=== PATIENT | male | born 1940 | race Caucasian/White ===

== ENCOUNTER 2016-08-09 08:43 | Inpatient (IN) | payer MEDICARE, OTHER ==
--- NOTE | 2016-08-08 11:10 | NUR ---
NN PT STATES HE DOESN'T HAVE A WAY HOME AND IS PLANNING ON DRIVING HIMSELF TO AND FROM THE HOSPITAL. I DISCUSSED WITH PT THAT OUR POLICY IS FOR THE PT TO NOT DRIVE THEMSELVES HOME AFTER PROCEDURE BUT THAT I WOULD DO SOME CHECKING. I SPOKE WITH CASE MANAGEMENT WELL FARNAZ IN RISK MANAGEMENT TO COME UP WITH A PLAN FOR THIS PT. THEY ARE WORKING ON POSSIBILITY OF EXTENDED CAB SERVICE THE PT STATED HE WAS TOLD BY DR. MAC THAT HE WOULDN'T BE DISCHARGED UNTIL AFTER HOURS ON MON. PT IS CONCERNED THAT CAB SERVICE ONLY RUNS UNTIL 4:30. I CONTA[address] MAC'S OFFICE TO SEE IF THERE WAS ANY CHANCE THAT DISCHARGE COULD HAPPEN PRIOR TO THE 4:30 CUT OFF TIME. WAITING ON A RETURN CALL FROM DR. MAC'S OFFICE AFTER HIS NURSE HAS A CHANCE TO DISCUSS THE SITUATION WITH HIM.
--- NOTE | 2016-08-08 15:00 | NUR ---
NN DR. MAC'S OFFICE HAS NOT YET RETURNED PHONE CALL IN REGARDS TO PT CHECK OUT. SPOKE WITH FARNAZ AND THE DECISION WAS MADE TO CALL PT AND NOTIFY HIM THAT HE SHOULD PROCEED WITH BRINGING A CAB TO THE HOSPITAL FOR HIS PROCEDURE AND THAT THE HOSPITAL WOULD HAVE ARRANGEMENTS MADE FOR HIS RIDE UPON DISCHARGE. PT WAS NOTIFIED, HE WAS VERY GRATEFUL FOR ALL THE HARD WORK FROM THE HOSPITAL TO MAKE THIS HAPPEN FOR HIM.
[2016-08-09] VITALS (30 sets, daily range): BP systolic 78–147; BP diastolic 39–82; PULSE 74–102; RESP 14–28; TEMP 96.7–97.8; O2SAT 92–99; Ht 180.3 cm; Wt 108.0 kg
[~2016-08-09] VITALS: Ht 180.3 cm; Wt 108.0 kg
[~2016-08-09 08:43] MED LIST: AMLO5TAB2 PO; ASPI-557 PO; ATOR40TA64 PO; AZIT250T PO; CANA1TAB4 PO; EXEN2VIA SQ; FINA5TAB40 PO; FLUN25SP NAS; IBUP-1547 PO; IOHEXOL 300 MG/ML 50ml INJECTION ONE; LEVOFLOXACIN 500 mg IVPB 500 MG in D5W 100 ML IV ONE; LIDOCAINE 1% (10mg/ml) 2ml SDV INJ ONE; LISI-621 PO; POLY119P3 PO; TIMO5DRO7 BOTH EYES; [UNRECOGNIZED DRUG - CODE] PO; [UNRECOGNIZED DRUG - OTHER] TOP
--- OUTSIDE RECORDS SUMMARY | 2016-08-09 08:49 | XMS REPORT | Summary of Care ---
Author Author Cleve Ramos M.D. Organization Unknown Address [address] [place] [address] GADIEL Avilez [address] Phone Unavailable Care Team Providers Care Mobility Engineer Name Role Phone Cleve Ramos M.D. Unavailable Unavailable Rick Wheat II Unavailable Unavailable Unavailable Unavailable Functional Status Name Dates Details Functional status health issues are not documented Status: Name Dates Details Cognitive status health issues are not documented Status: Problems Name Dates Details Chronic prostatitis (601.1, N41.1) Status: Active Nocturia (788.43, R35.1) Status: Active HTN (hypertension) (401.9, I10) Status: Active Bilateral kidney stones (592.0, N20.0) Status: Active Prophylactic antibiotic (V58.62, Z79.2) Status: Active Microhematuria (599.72, R31.29) Status: Active BPH (benign prostatic hypertrophy) with urinary obstruction (600.01, N40.1) Status: Active Difficulty urinating (788.99, R39.198) Status: Active Medications Name Dates Details Lisinopril 20 MG Oral Tablet TAKE 1 TABLET DAILY. * Start 18-Mar-2016 Active Finasteride 5 MG Oral Tablet TAKE 1 TABLET DAILY. * Refills: 0 * Start 18-Mar-2016 Active MiraLax Oral Packet MIX 1 PACKET IN 8 OUNCES OF LIQUID AND DRINK ONCE DAILY. * Refills: 0 * Start 18-Mar-2016 Active Amlodipine-Atorvastatin 5-20 MG Oral Tablet TAKE 1 TABLET DAILY. * Refills: 0 * Start 18-Mar-2016 Active Amlodipine Besy-Benazepril HCl - 5-40 MG Oral Capsule Take 1 tablet daily * Refills: 0 * Start 18-Mar-2016 Active Aspirin Adult Low Dose 81 MG Oral Tablet Delayed Release TAKE 1 TABLET DAILY. * Refills: 0 * Start 18-Mar-2016 Active Niaspan 1000 MG Oral Tablet Extended Release TAKE 1 TABLET AT BEDTIME. * Refills: 0 * Start 18-Mar-2016 Active Invokamet 150-1000 MG Oral Tablet TAKE 1 TABLET TWICE DAILY. * Refills: 0 * Start 18-Mar-2016 Active Timolol Maleate 0.25 % Ophthalmic Gel Forming Solution ONE DROP RIGHT EYE TWICE DAILY. * Refills: 0 * Start 18-Mar-2016 Active Flunisolide 25 MCG/ACT (0.025%) Nasal Solution USE DIRECTED. * Refills: 0 * Start 18-Mar-2016 Active Metrogel 1 % External Gel USE DIRECTED. * Refills: 0 * Start 18-Mar-2016 Active Bydureon 2 MG Subcutaneous Pen-injector * Refills: 0 * Start 18-Mar-2016 Active Tamsulosin HCl - 0.4 MG Oral Capsule TAKE 1 CAPSULE BY MOUTH AT BEDTIME * Quantity: 90 Refills: 3 Cho M.DChristiano, Cleve * Start 18-Mar-2016 Active Allergies and Adverse Reactions Name Dates Details Decongest II TB12 (Allergy) Status: Active Sulfa Drugs (Allergy) Status: Active Past Medical History Name Dates Details History of Kidney stone on left side (592.0, N20.0) Status: Resolved History of kidney stones (V13.01, Z87.442) Status: Resolved History of Left ureteral calculus (592.1, N20.1) Status: Resolved History of Lesion of bladder (596.9, N32.9) Status: Resolved History of Pyuria (791.9, N39.0) Status: Resolved History of Renal colic on right side (788.0, N23) Status: Resolved History of Retained ureteral stent (V43.89, Z96.0) Status: Resolved History of Right ureteral stone (592.1, N20.1) Status: Resolved History of Ureter, stricture (593.3, N13.5) Status: Resolved History of Urinary urgency (788.63, R39.15) Status: Resolved Procedures Procedure Dates Details History of Surg Prostate Transureth Dest Tissue Microwave Thermotherapy History of Cholecystotomy History of Cystoscopy With Ureteroscopy With Lithotripsy Procedures not documented Immunization Name Dates Details Immunizations not documented Family History Name Dates Details Family history of malignant neoplasm of breast (V16.3, Z80.3) Status: Active Family history of diabetes mellitus (V18.0, Z83.3) Status: Active Family history of epilepsy (V17.2, Z82.0) Status: Active Name Dates Details Family history of cardiac disorder (V17.49, Z82.49) Status: Active Social History Name Dates Details - Status: Name Dates Details Never smoker Vital Signs Date Test Result Details 01-Apr-2016 08:49 BP Systolic 112 mm[Hg] Status: Comments: Location: ; Position: BP Diastolic 60 mm[Hg] Status: Comments: Location: ; Position: Heart Rate 61 /min Status: Comments: Location: ; Weight 240 lb Status: 25-Mar-2016 10:38 BP Systolic 130 mm[Hg] Status: Comments: Location: ; Position: BP Diastolic 66 mm[Hg] Status: Comments: Location: ; Position: Heart Rate 68 /min Status: Comments: Location: ; Physical Findings 16 Status: Comments: Respiration 18-Mar-2016 08:04 BP Systolic 116 mm[Hg] Status: Comments: Location: ; Position: BP Diastolic 63 mm[Hg] Status: Comments: Location: ; Position: Heart Rate 85 /min Status: Comments: Location: ; Weight 240 lb Status: Results Date Description Value Details Results not documented Plan of Care Name Dates Details Planned Observations Planned Goals not documented Instructions Name Dates Details Instructions not documented Encounters Appointment; Cleve Ramos M.D. Encounter Diagnosis: Problem not documented On 25-Mar-2016 10:30 Appointment; Cleve Ramos M.D. Encounter Diagnosis: Problem not documented On 18-Mar-2016 08:00
--- OUTSIDE RECORDS SUMMARY | 2016-08-09 08:49 | XMS REPORT | Summary of Care ---
Author Author Cleve Ramos M.D. Organization Unknown Address [address] [place] [address] GADIEL Avilez [address] Phone Unavailable Care Team Providers Care Security Delivery Specialist Name Role Phone Cleve Ramos M.D. Unavailable Unavailable Rick Wheat II Unavailable Unavailable Unavailable Unavailable Functional Status Name Dates Details Functional status health issues are not documented Status: Name Dates Details Cognitive status health issues are not documented Status: Problems Name Dates Details Nocturia (788.43, R35.1) Status: Active HTN (hypertension) (401.9, I10) Status: Active Bilateral kidney stones (592.0, N20.0) Status: Active Prophylactic antibiotic (V58.62, Z79.2) Status: Active Microhematuria (599.72, R31.29) Status: Active Difficulty urinating (788.99, R39.198) Status: Active Epididymitis (604.90, N45.1) Status: Active BPH (benign prostatic hypertrophy) with urinary obstruction (600.01, N40.1) Status: Active Chronic prostatitis (601.1, N41.1) Status: Active Medications Name Dates Details Lisinopril [...] BEDTIME * Quantity: 90 Refills: 3 Cho Tammy.Cleve Reyna * Start 18-Mar-2016 Active Doxycycline Hyclate 100 MG Oral Capsule TAKE 1 CAPSULE TWICE DAILY UNTIL GONE. * Quantity: 60 Refills: 0 Cho M.Cleve Reyna * Start 22-Apr-2016 Active Allergies and Adverse Reactions Name Dates [...] smoker Vital Signs Date Test Result Details 22-Apr-2016 08:48 BP Systolic 124 mm[Hg] Status: Comments: Location: ; Position: BP Diastolic 73 mm[Hg] Status: Comments: Location: ; Position: Heart Rate 98 /min Status: Comments: Location: ; Physical Findings 16 Status: Comments: Respiration 01-Apr-2016 08:49 BP Systolic 112 mm[Hg] Status: [...] ; Physical Findings 16 Status: Comments: Respiration Results Date Description Value Details Results not documented Plan of Care Name Dates Details Planned Observations Planned Goals not documented Planned Encounters Appointment; Provider: Cleve Ramos M.D. On 06-May-2016 08:00 Interventions Provided Medication Changes* Doxycycline Hyclate 100 MG Oral Capsule - Start Instructions Name Dates Details Instructions not documented Encounters Appointment; Cleve Ramos M.D. Encounter Diagnosis: Problem not documented On 01-Apr-2016 08:45 Appointment; Cleve Ramos M.D. Encounter Diagnosis: Problem not documented On 25-Mar-2016 10:30 Appointment; Cleve Ramos M.D. Encounter Diagnosis: Problem not documented On 18-Mar-2016 08:00
--- OUTSIDE RECORDS SUMMARY | 2016-08-09 08:49 | XMS REPORT | Continuity of Care Document ---
Author Author [facility] Organization [facility] Address Unknown Phone Unavailable Support Name Relationship Address Phone LISSETTE PAULINO MD Caregiver [address] [place] [address] Unavailable DARVIN MCLEOD II, MD Caregiver [address] [facility] [place] [address] [phone] DWIGHT KENT Next Of Kin [address] [place] [address] C Insurance Providers Payer Name Policy Number Subscriber Name Relationship Medicare [id number] Darvin Leary 18 Self Medicare Supp Wps [id number] Darvin Leary 18 Self Problems Medical Problems Problem Onset Date Status Ureteral calculus, right Unknown Active Ureteral calculus, right Unknown Active Atypical chest pain Unknown Active Medications Medication Dose Route Sig Days/Qty Instructions Order Date Discontinued Date Status [[place]orro Aspirin] 1 Tab PO DAILY 02/16/08 02/20/08 Discontinued Exenatide 1 INJ DAILY 02/16/08 02/20/08 Discontinued Multivitamins W-Minerals/Lut 1 Tab PO DAILY 02/16/08 02/20/08 Discontinued [Detrol La] 1 PO DAILY 02/16/08 02/20/08 Discontinued [Finasteride] 1 Cap PO DAILY 02/16/08 02/20/08 Discontinued [Metformin] 1 Tab PO DAILY 02/16/08 02/20/08 Discontinued [Miralax] 02/16/08 02/20/08 Discontinued [Oxaprozen] 1 Tab PO DAILY 02/16/08 02/20/08 Discontinued Ezetimibe/Simvastatin 1 Tab PO DAILY 02/16/08 02/20/08 Discontinued Exenatide 10 Mcg SQ TWICE A DAY 1 Qty 09/01/09 03/30/10 Discontinued [metformin hcl ] 100 Mg PO TWICE A DAY 1 Qty 02/16/08 02/20/08 Discontinued Multivitamins W-Minerals/Lut 1 Tab PO DAILY 1 Qty 09/01/09 02/22/11 Discontinued Oxaprozin 600 Mg PO TWICE A DAY 1 Qty 09/01/09 03/30/10 Discontinued Finasteride 5 Mg PO DAILY 1 Qty 09/01/09 Active Tolterodine Tartrate 4 Mg PO DAILY 1 Qty 09/01/09 02/21/11 Discontinued Polyethylene Glycol 3350 255 Gm PO DAILY 1 Qty 09/01/09 Active Aspirin 325 Mg PO DAILY 1 Qty 02/20/08 08/31/09 Discontinued Ezetimibe/Simvastatin 1 Tab PO DAILY 1 Qty 02/16/08 02/20/08 Discontinued Niacin 1,000 Mg PO DAILY 1 Qty 02/16/08 02/20/08 Discontinued Flunisolide 1 [place] NS BID PRN 1 Qty 09/01/09 Active [metrol gel] 1 TWICE A DAY 02/16/08 02/20/08 Discontinued Metformin Hcl 1,000 Mg PO TWICE A DAY 02/20/08 08/31/09 Discontinued Ezetimibe/Simvastatin 1 Tab PO BEDTIME 02/20/08 08/31/09 Discontinued Niacin 1,000 Mg PO BEDTIME 09/01/09 03/30/10 Discontinued Metformin Hcl 1,000 Mg PO TWICE A DAY 09/01/09 Active Aspirin 81 Mg PO DAILY 09/01/09 07/15/13 Discontinued [Victoza] 03/25/10 03/30/10 Discontinued [Metoclopramide] 03/25/10 03/30/10 Discontinued [Pristiq] 03/25/10 03/30/10 Discontinued [Caduet] 03/25/10 03/30/10 Discontinued [Metoprolol] 03/25/10 03/30/10 Discontinued [Oxaprozin] 03/25/10 03/30/10 Discontinued [Metrogel] 03/25/10 03/30/10 Discontinued [Minocycline] 03/25/10 03/30/10 Discontinued Niacin 1,000 Mg PO at supper 03/30/10 02/21/11 Discontinued Minocycline Hcl 100 Mg PO DAILY 03/30/10 07/15/13 Discontinued Metoprolol Tartrate 100 Mg PO DAILY 03/30/10 02/22/11 Discontinued Amlodipine/Atorvast [place] 1 Tab PO DAILY 03/30/10 Active Metoclopramide Hcl 5 Mg PO THREE TIMES A DAY 03/30/10 02/22/11 Discontinued [pristiq] 50 Mg PO d 03/30/10 03/30/10 Discontinued [victoza] 1.2 Mg SQ DAILY 03/30/10 03/30/10 Discontinued Oxaprozin 600 Mg PO TWICE A DAY 03/30/10 07/15/13 Discontinued Minocycline Hcl 100 Mg PO DAILY 03/30/10 03/30/10 Discontinued [victoza] 1.2 Mg SQ 03/30/10 02/21/11 Discontinued Sitagliptin Phosphate 50 Mg PO NEEDED 03/31/10 02/21/11 Discontinued Exenatide 10 Mcg SQ TWICE A DAY 02/21/11 07/15/13 Discontinued [Pristiq 30mg] 1 Tab PO DAILY 02/22/11 07/15/13 Discontinued Niacin 1,000 Mg PO BEDTIME 02/22/11 08/08/11 Discontinued Niacin 1,000 Mg PO DAILY 08/08/11 Active Metoclopramide Hcl 5 Mg PO THREE TIMES A DAY 09/18/11 07/15/13 Discontinued Exenatide Microspheres 2 Mg SQ 1 WEEK 07/15/13 Active [metrol gel] TOP TWICE A DAY 07/15/13 Active Social History Social History Problem Response Recorded Date/Time Chewing Tobacco Status No 07/22/2013 1:24pm Hx Substance Use No 07/17/2014 8:09pm Hx Alcohol Use No 07/17/2014 8:09pm Has the pt used tobacco in the last 12 months No 07/22/2013 1:24pm Query Response Start Date Stop Date Smoking Status Never smoker Hospital Discharge Instructions No hospital discharge instructions. Plan of Care No plan of care. Functional Status Query Response Date Recorded Physical Hygiene Self July 17, 2014 8:09pm Disabilities Visual July 17, 2014 8:09pm Devices Used Glasses Cane July 17, 2014 8:09pm Dressing Self July 17, 2014 8:09pm Ambulation Self July 17, 2014 8:09pm Diet Self July 17, 2014 8:09pm Mental Status Alert July 17, 2014 9:30pm Disabilities Visual July 17, 2014 8:09pm Devices Used Glasses Cane July 17, 2014 8:09pm Physical Hygiene Self July 17, 2014 8:09pm Dressing Self July 17, 2014 8:09pm Ambulation Self July 17, 2014 8:09pm Diet Self July 17, 2014 8:09pm Allergies, Adverse Reactions, Alerts Allergen Type Severity Reaction Status Last Updated Sulfa (Sulfonamide Antibiotics) Allergy Mild Active 07/17/14 Tamsulosin Allergy Intermediate Made Sterile per Pt Active 07/17/14 DECONGESTANT Allergy Intermediate KIDNEYS QUIT Active 07/15/13 Immunizations Name Given Type Hx Influenza Vaccination Y FALL 2012 Historical Hx Pneumococcal Vaccination N 02/18/08 Historical Hx Influenza Vaccination Y FALL 2012 Historical Vital Signs Acute Vital Signs Vital Response Date/Time Temperature (Fahrenheit) 97.3 deg F (96.8 - 99.1) Temperature (Calculated Celsius) 36.04659 degrees C (36.0 - 37.3) Pulse Rate (adult) 88 bpm (60 - 100) Respiratory Rate 20 breaths/min (10 - 20) O2 Sat by Pulse Oximetry 97 % (90 - 100) Blood Pressure 136/68 mm Hg Height 5 ft 10 in Weight 262 lb Body Mass Index 37.0 kg/m^2 Results Test Source Date Result Interp. Ref. Range Comments Influenza Type B Antigen July 17, 2014 8:55pm Negative - Negative for Flu B protein antigen. Assay sensitivity is90%. Influenza Type A Antigen July 17, 2014 8:55pm Negative - NNegative for Flu A protein antigen. Assay sensitivity is90%. Activated Partial Thromboplast Time July 23, 2013 6:15am 34.5 SEC N 24- 36 COMMENT SCU WILL CALL Alanine Aminotransferase (ALT/SGPT) July 17, 2014 7:50pm 17 U/L L 21- 72 Albumin July 17, 2014 7:50pm 3.9 G/DL N 3.5-5.0 Albumin/Globulin Ratio July 17, 2014 7:50pm 1.3 RATIO N 1.1-2.2 Alkaline Phosphatase July 17, 2014 7:50pm 90 U/L N 38-126 Amylase Level July 15, 2013 7:03pm 64 U/L N 30-110 Anion Gap July 17, 2014 7:50pm 16 MEQ/L H 5-15 Aspartate Amino Transf (AST/SGOT) July 17, 2014 7:50pm 17 U/L N 17-59 BUN/Creatinine Ratio July 17, 2014 7:50pm 21 RATIO N 6-26 Band Neutrophils # March 18, 2008 3:37pm 0.2 T/MM3 - Band Neutrophils % March 18, 2008 3:37pm 2.0 % N 0-6 Basophils # (Auto) July 17, 2014 7:50pm 0.0 T/MM3 N 0-0.2 Basophils (%) (Auto) July 17, 2014 7:50pm 0.4 % N 0-2 Blood Urea Nitrogen July 17, 2014 7:50pm 21.0 MG/DL H 9-20 Calcium Level July 17, 2014 7:50pm 9.2 MG/DL N 8.4-10.2 Calculated Osmolality July 17, 2014 7:50pm 285 MOSM/KG H 261-280 Carbon Dioxide Level July 17, 2014 7:50pm 23 MEQ/L N 22-30 Chemistry Specimen Hemolysis July 17, 2014 7:50pm < 15 0-25 0-25: No Hemolysis.26-70: Slight Hemolysis - can falsely elevate K and Urine Protein. 71-285: Moderate Hemolysis - can falsely elevate K, Troponin I, CA 19-9, PTH, CSF GLucose, and Urine Protein, and can falsely decrease Phenytoin. 286-999: Gross Hemolysis - can falsely elevate K, Troponin I, CA 19-9, PTH, CSF Glucose, and Urine Protine, and can falsely decrease Phenytoin. Recommend specimen recollection. Chloride Level July 17, 2014 7:50pm 106 MEQ/L N 98-107 Cholesterol Level March 31, 2010 7:20am 158 MG/DL N 132-199 COMMENT TO SCU AT 0730 Cholesterol/HDL Ratio March 31, 2010 7:20am 4.0 RATIO N 0-5.0 COMMENT TO SCU AT 0730 Creatinine July 17, 2014 7:50pm 1.0 MG/DL N 0.8-1.5 Differential Total Cells Counted March 18, 2008 3:37pm 100 % - EKG February 20, 2008 1:00pm Complete - Eosinophils # (Auto) July 17, 2014 7:50pm 0.1 T/MM3 N 0-0.5 Eosinophils # (Manual) March 18, 2008 3:37pm 0.3 T/MM3 N 0-0.5 Eosinophils % (Manual) March 18, 2008 3:37pm 3.0 % N 0-4 Eosinophils (%) (Auto) July 17, 2014 7:50pm 1.6 % N 0-4 Globulin July 17, 2014 7:50pm 2.9 G/DL N 2.4-3.6 Glomerular Filtration Rate Calc July 17, 2014 7:50pm 73 - Glucometer August 09, 2011 8:07am 152 mg/dL H 75-110 Glucose Level July 17, 2014 7:50pm 151 MG/DL H 75-110 HDL Cholesterol Direct March 31, 2010 7:20am 40 MG/DL N 40-60 COMMENT TO SCU AT 0730 Hematocrit July 17, 2014 7:50pm 43.7 % N 41-53 Hemoglobin July 17, 2014 7:50pm 15.0 GM/DL N 13.5-17.5 Icterus Index July 17, 2014 7:50pm < 2 0-7 Immature Granulocyte # (Auto) July 17, 2014 7:50pm 0.02 T/MM3 N 0.00- 0.03 Immature Granulocyte % (Auto) July 17, 2014 7:50pm 0.3 % N 0.0-0.5 LDL Cholesterol, Calculated March 31, 2010 7:20am 92.4 N 66-159 COMMENT TO SCU AT 0730 Lab Scanned Report June 25, 2009 8:46am LAB TEST FORM REQUEST [id number] - Lipase July 15, 2013 7:03pm 155 U/L N 23-300 Lymphocytes # (Auto) July 17, 2014 7:50pm 2.2 T/MM3 N 1-4.8 Lymphocytes # (Manual) March 18, 2008 3:37pm 1.0 T/MM3 N 1-4.8 Lymphocytes % (Manual) March 18, 2008 3:37pm 10.0 % L 23-45 Lymphocytes (%) (Auto) July 17, 2014 7:50pm 28.3 % N 23-45 Mean Corpuscular Hemoglobin July 17, 2014 7:50pm 28.8 UUG N 26-34 Mean Corpuscular Hemoglobin Concent July 17, 2014 7:50pm 34.3 GM/DL N 31-37 Mean Corpuscular Volume July 17, 2014 7:50pm 84.0 UM3 N 80-100 Mean Platelet Volume July 17, 2014 7:50pm 9.6 UM3 N 9.4-12.4 Monocytes # (Auto) July 17, 2014 7:50pm 0.5 T/MM3 N 0-0.8 Monocytes # (Manual) March 18, 2008 3:37pm 1.4 T/MM3 H 0-0.8 Monocytes % (Manual) March 18, 2008 3:37pm 14.0 % H 0-9.0 Monocytes (%) (Auto) July 17, 2014 7:50pm 7.0 % N 0-9.0 Neutrophils # (Auto) July 17, 2014 7:50pm 4.8 T/MM3 N 1.8-7.7 Neutrophils # (Manual) March 18, 2008 3:37pm 7.2 T/MM3 N 1.8-7.7 Neutrophils % (Manual) March 18, 2008 3:37pm 71.0 % H 33-66 Neutrophils (%) (Auto) July 17, 2014 7:50pm 62.4 % N 33-66 Platelet Count July 17, 2014 7:50pm 182 T/MM3 N 130-400 Potassium Level July 17, 2014 7:50pm 4.0 MEQ/L N 3.6-5 Prothromb Time International Ratio July 23, 2013 6:15am 1.13 H 0.86- 1.10 THERAPUTIC RANGE=2.00-3.00 FOR ANTI-THROMBOSIS THERAPUTIC RANGE=2.50- 3.50 FOR IMPLANTED VALVE RDW Standard Deviation July 17, 2014 7:50pm 42.7 FL N 36.9-50.2 Red Blood Count July 17, 2014 7:50pm 5.20 M/MM3 N 4.50-5.90 Sodium Level July 17, 2014 7:50pm 145 MEQ/L H 134-144 Stone Constituent 1 July 23, 2013 8:20am See below - 80% Calcium oxalate monohydrate Stone Constituent 2 July 23, 2013 8:20am See below - 20% Calcium oxalate dihydrateTest Performed by: [place] [address] Prestidigitator: Jett Delgadillo III, M.D. [place] [address] Wedger Elie Coello MD Stone Source July 23, 2013 8:20am Kidney - Corrected result; previously reported as KIDNEY on 07/23/13 at 09:14 by Stone Weight July 23, 2013 8:20am 0.026 g - COMMENT RIGHT URETERAL STONE Total Bilirubin July 17, 2014 7:50pm 0.40 MG/DL N 0.20-1.30 Total Protein July 17, 2014 7:50pm 6.8 G/DL N 6.3-8.2 Triglycerides Level March 31, 2010 7:20am 128 MG/DL N 40-160 COMMENT TO SCU AT 0730 Troponin I July 17, 2014 7:50pm 0.022 ng/ml N 0-0.12 Turbidity July 17, 2014 7:50pm < 20 0-20 Urinalysis Comment July 17, 2014 8:04pm Microscopic not ind. - Has specimen been collected/obtained? Y Urine Bacteria July 15, 2013 6:30pm 1+ H - Has specimen been collected /obtained? Y Urine Bilirubin July 17, 2014 8:04pm Negative - Has specimen been collected/obtained? Y Urine Blood July 17, 2014 8:04pm Negative - Has specimen been collected/obtained? Y Urine Collection Type July 17, 2014 8:04pm Cleancatch-midstream - Has specimen been collected/obtained? Y Urine Color July 17, 2014 8:04pm Yellow - Has specimen been collected/obtained? Y Urine Culture Indicated July 15, 2013 6:30pm Cult reflexed &setup - Has specimen been collected/obtained? Y Urine Glucose (UA) July 17, 2014 8:04pm Negative - Has specimen been collected/obtained? Y Urine Ketones July 17, 2014 8:04pm Negative - Has specimen been collected/obtained? Y Urine Leukocyte Esterase July 17, 2014 8:04pm Negative - Has specimen been collected/obtained? Y Urine Microscopic Not Indicated September 18, 2011 9:45am Not indicated - Has specimen been collected/obtained? Y Urine Mucus July 15, 2013 6:30pm Present - Has specimen been collected/obtained? Y Urine Nitrite July 17, 2014 8:04pm Negative - Has specimen been collected/obtained? Y Urine Protein July 17, 2014 8:04pm Negative - Has specimen been collected/obtained? Y Urine RBC July 15, 2013 6:30pm 10-20 /HPF H - Has specimen been collected/obtained? Y Urine Specific [place] July 17, 2014 8:04pm 1.020 - Has specimen been collected/obtained? Y Urine Squamous Epithelial Cells July 15, 2013 6:30pm 0-5 - Has specimen been collected/obtained? Y Urine Turbidity July 17, 2014 8:04pm Clear - Has specimen been collected/obtained? Y Urine Urobilinogen July 17, 2014 8:04pm 0.2 EU/DL - Has specimen been collected/obtained? Y Urine WBC July 15, 2013 6:30pm 0-1 /HPF - Has specimen been collected/obtained? Y Urine pH July 17, 2014 8:04pm 6.0 - Has specimen been collected/ obtained? Y VLDL Cholesterol March 31, 2010 7:20am 25.6 MG/DL N 0-28 COMMENT TO SCU AT 0730 White Blood Count July 17, 2014 7:50pm 7.7 T/MM3 N 4.5-11.0 Helicobacter pylori Rapid Urease Gastric Biopsy September 01, 2009 7:52am Urine Culture Urine, Voided-Not Cc-Midstream July 15, 2013 7:07pm Gram Positive Organism Gram Stain Arm-Right Upper June 24, 2009 4:57pm Procedures No known history of procedures. Encounters Encounter Location Date/Time Departed Emergency Room [facility] 07/17/14 7:23pm Recent Diagnosis
--- OUTSIDE RECORDS SUMMARY | 2016-08-09 08:49 | XMS REPORT | Summary of Care ---
Author Author Cleve Ramos M.D. Organization Unknown Address [address] [place] [address] GADIEL Avilez [address] Phone Unavailable Care Team Providers Care Gasket Notcher Name Role Phone Cleve Ramos M.D. Unavailable Unavailable Rick Wheat II Unavailable Unavailable Unavailable Unavailable Functional Status Name Dates Details Functional status health issues are not documented Status: Name Dates Details Cognitive status health issues are not documented Status: Problems Name Dates Details Chronic prostatitis (601.1, N41.1) Status: Active Nocturia (788.43, R35.1) Status: Active HTN (hypertension) (401.9, I10) Status: Active Difficulty urinating (788.99, R39.198) Status: Active BPH (benign prostatic hypertrophy) with urinary obstruction (600.01, N40.1) Status: Active Microhematuria (599.72, R31.29) Status: Active Bilateral kidney stones (592.0, N20.0) Status: Active Medications Name Dates Details Lisinopril [...] Tamsulosin HCl - 0.4 MG Oral Capsule ONE TABLET AT BEDTIME * Quantity: 30 Refills: 3 Cho Giorgio Cleve * Start 18-Mar-2016 Active Allergies and [...] smoker Vital Signs Date Test Result Details 18-Mar-2016 08:04 BP Systolic 116 mm[Hg] Status: Comments: Location: ; Position: BP Diastolic 63 mm[Hg] Status: Comments: Location: ; Position: Heart Rate 85 /min Status: Comments: Location: ; Weight 240 lb Status: Results Date Description Value Details Results not documented Plan of Care Name Dates Details Planned Observations Planned Goals not documented Interventions Provided Medication Changes* Tamsulosin HCl - 0.4 MG Oral Capsule - Start Instructions Name Dates Details Instructions not documented Encounters Appointment; Cleve Ramos M.D. Encounter Diagnosis: Problem not documented On 18-Mar-2016 08:00
--- OUTSIDE RECORDS SUMMARY | 2016-08-09 08:49 | XMS REPORT | Summary of Care ---
Author Author Cleve Ramos M.D. Organization Unknown Address [address] [place] [address] GADIEL Avilez [address] Phone Unavailable Care Team Providers Care Scoop Filler Name Role Phone Cleve Ramos M.D. Unavailable Unavailable Rick Wheat II Unavailable Unavailable Unavailable Unavailable Functional Status Name Dates Details Functional status health issues are not documented Status: Name Dates Details Cognitive status health issues are not documented Status: Problems Name Dates Details Nocturia (788.43, R35.1) Status: Active HTN (hypertension) (401.9, I10) Status: Active Prophylactic antibiotic (V58.62, Z79.2) Status: Active Microhematuria (599.72, R31.29) Status: Active Difficulty urinating (788.99, R39.198) Status: Active Epididymitis (604.90, N45.1) Status: Active Abdominal pain (789.00, R10.9) Status: Active Chronic prostatitis (601.1, N41.1) Status: Active Bilateral kidney stones (592.0, N20.0) Status: Active 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 * Quantity: 60 Refills: 0 Cho M.DCleve Alvarado * Start 22-Apr-2016 Active Allergies and Adverse [...] smoker Vital Signs Date Test Result Details 08-Jun-2016 08:15 BP Systolic 112 mm[Hg] Status: Comments: Location: ; Position: BP Diastolic 70 mm[Hg] Status: Comments: Location: ; Position: Heart Rate 113 /min Status: Comments: Location: ; Weight 240 lb Status: Results Date Description Value Details Results not documented Plan of Care Name Dates Details Planned Observations Planned Goals not documented Planned Encounters Appointment; Provider: Cleve Ramos M.D. On 29-Jun-2016 11:00 Instructions Name Dates Details Instructions not documented Encounters Appointment; Cleve Ramos M.D. Encounter Diagnosis: Problem not documented On 11-May-2016 09:45 Appointment; Cleve Ramos M.D. Encounter Diagnosis: Problem not documented On 06-May-2016 08:00 Appointment; Cleve Ramos M.D. Encounter Diagnosis: Problem not documented On 22-Apr-2016 08:45 Appointment; Cleve Ramos M.D. Encounter Diagnosis: Problem not documented On 01-Apr-2016 08:45 Appointment; Cleve Ramos M.D. Encounter Diagnosis: Problem not documented On 25-Mar-2016 10:30 Appointment; Cleve Ramos M.D. Encounter Diagnosis: Problem not documented On 18-Mar-2016 08:00
--- OUTSIDE RECORDS SUMMARY | 2016-08-09 08:49 | XMS REPORT | Summary of Care ---
Author Author Cleve Ramos M.D. Organization Unknown Address [address] [place] [address] GADIEL Avilez [address] Phone Unavailable Care Team Providers Care Prize Fighter Name Role Phone Cleve Ramos M.D. Unavailable [...] Active Chronic prostatitis (601.1, N41.1) Status: Active Groin pain (789.09, R10.30) Status: Active BPH with obstruction/lower urinary tract symptoms (600.01, N40.1) Status: Active Prostatitis (601.9, N41.9) Status: Active Bilateral kidney stones (592.0, N20.0) [...] BEDTIME * Quantity: 90 Refills: 3 Cho M.DChristiano Cleve * Start 18-Mar-2016 Active Allergies and [...] smoker Vital Signs Date Test Result Details 29-Jun-2016 11:06 Height 70 in Status: Weight 240 lb Status: Body Mass Index Calculated 34.44 kg/m2 Status: Body Surface Area Calculated 2.26 m2 Status: Results Date Description Value Details Results not documented Plan of Care Name Dates Details Planned Observations Planned Goals not documented Instructions Name Dates Details Instructions not documented Encounters Appointment; Cleve Ramos M.D. Encounter Diagnosis: Problem not documented On 29-Jun-2016 11:00 Appointment; Cleve Ramos M.D. Encounter Diagnosis: Problem not documented On 08-Jun-2016 08:15 Appointment; Cleve Ramos M.D. Encounter Diagnosis: Problem [...]
--- OUTSIDE RECORDS SUMMARY | 2016-08-09 08:49 | XMS REPORT | Summary of Care ---
Author Author Cleve Ramos M.D. Organization Unknown Address [address] [place] [address] GADIEL Avilez [address] Phone Unavailable Care Team Providers Care Railways Assistant Name Role Phone Cleve Ramos M.D. Unavailable [...] with urinary obstruction (600.01, N40.1) Status: Active Abdominal pain (789.00, R10.9) Status: Active Epididymitis (604.90, N45.1) Status: Active Chronic prostatitis (601.1, N41.1) Status: Active Difficulty urinating (788.99, R39.198) Status: Active Bilateral kidney stones (592.0, N20.0) [...] smoker Vital Signs Date Test Result Details 06-May-2016 08:00 BP Systolic 111 mm[Hg] Status: Comments: Location: ; Position: BP Diastolic 61 mm[Hg] Status: Comments: Location: ; Position: Heart Rate 63 /min Status: Comments: Location: ; Physical Findings 16 Status: Comments: Respiration 22-Apr-2016 08:48 BP Systolic 124 mm[Hg] Status: Comments: Location: ; Position: BP Diastolic 73 mm[Hg] Status: Comments: Location: ; Position: Heart Rate 98 /min Status: Comments: Location: ; Physical Findings 16 Status: Comments: Respiration Results Date Description Value Details Results not documented Plan of Care Name Dates Details Planned Observations Planned Goals not documented Planned Encounters Appointment; Provider: Cleve Ramos M.D. On 11-May-2016 09:45 Instructions Name Dates Details Instructions not documented Encounters Appointment; Cleve Ramos M.D. Encounter Diagnosis: Problem not documented On 22-Apr-2016 08:45 Appointment; Cleve Ramos M.D. Encounter Diagnosis: Problem not documented On 01-Apr-2016 08:45 Appointment; Cleve Ramos M.D. Encounter Diagnosis: Problem not documented On 25-Mar-2016 10:30 Appointment; Cleve Ramos M.D. Encounter Diagnosis: Problem not documented On 18-Mar-2016 08:00
--- OUTSIDE RECORDS SUMMARY | 2016-08-09 08:49 | XMS REPORT | Summary of Care ---
Author Author Cleve Ramos M.D. Organization Unknown Address [address] [place] [address] GADIEL Avilez [address] Phone Unavailable Care Team Providers Care Chemist Enzymes Name Role Phone Cleve Ramos M.D. Unavailable [...] MG Oral Capsule TAKE 1 CAPSULE TWICE DAILY. * Quantity: 60 Refills: 1 Cho M.Cleve Reyna * Start 27-Jul-2016 Active Allergies and Adverse Reactions Name Dates [...] Goals not documented Interventions Provided Medication Changes* Doxycycline Hyclate 100 [...]
--- OUTSIDE RECORDS SUMMARY | 2016-08-09 08:50 | XMS REPORT | Summary of Care ---
Author Author Cleve Ramos M.D. Organization Unknown Address [address] [place] [address] GADIEL Avilez [address] Phone Unavailable Care Team Providers Care Acute Dialysis Registered Nurse Name Role Phone Cleve Ramos M.D. 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, N40.1) Status: Active Bilateral kidney stones (592.0, N20.0) Status: Active Groin pain (789.09, R10.30) Status: Active Medications Name Dates Details Lisinopril [...] BEDTIME * Quantity: 90 Refills: 3 Cho M.Axel Cleve * Start 18-Mar-2016 Active Allergies and [...] Body Surface Area Calculated 2.26 m2 Status: 08-Jun-2016 08:15 BP Systolic 112 mm[Hg] Status: BP Diastolic 70 mm[Hg] Status: Heart Rate 113 /min Status: Weight 240 lb Status: Results Date Description Value Details Results not documented Plan of Care Name Dates Details Planned Observations Planned Goals not documented Planned Encounters Appointment; Provider: Cleve Ramos M.D. On 29-Jul-2016 08:15 Instructions Name Dates Details Instructions not documented [...]
--- OUTSIDE RECORDS SUMMARY | 2016-08-09 08:50 | XMS REPORT | Continuity of Care Document ---
Author Author Organization Address Unknown Phone Unavailable Support Name Relationship Address Phone LISSETTE PAULINO MD Caregiver [address] [place] [address] Unavailable DARVIN MCLEOD II, MD Caregiver [address] [place] [address] Unavailable DWIGHT KENT Next Of Kin [address] [place] [address] C Insurance Providers Guarantor Darvin Leary Address [address] [place] [address] Email [email or web address] Payer Medicare Policy Number [id number] Subscriber's Name Darvin Leary Relationship 18 Self Effective Date 05 Payer [facility] Medicare [facility] Policy Number [id number] Subscriber's Name Darvin Leary Relationship 18 Self Effective Date 05 Chief Complaint and Reason for Visit Chief Complaint Ear Pain/Injury Reason for Visit Acute otitis media [id number] Problems Active Problems Medical Problem Onset Date Status Atypical chest pain Unknown Acute Ureteral calculus, left Unknown Acute Ureteral calculus, right Unknown Acute Ureteral calculus, right Unknown Acute Past Problems Medical Problem Onset Date Acute otitis media Unknown Viral upper respiratory infection Unknown Medications Current Home Medications Medication Dose Units Route Directions Days Qty Instructions Start Date Amlodipine Besylate 5 Mg Tablet 5 Mg Oral Daily 12/25/15 Aspirin (Aspir 81) 81 Mg Tablet. 81 Mg Oral Daily 08/15/14 Atorvastatin Calcium 40 Mg Tablet 40 Mg Oral Bedtime 12/25/15 Azithromycin (Zithromax) 250 Mg Tablet 1 Tab Oral Daily 4 Tablet TAKE TWO ON DAY ONE, THEN ONE TAB DAILY UNTIL ALL TAKEN. 12/25/15 Canagliflozin/Metformin Hcl (Invokamet 150-1,000 Mg Tablet) 1 Each Tablet 1 Tab Oral Twice A Day 12/25/15 Exenatide Microspheres (Bydureon) 2 Mg Vial 2 Mg Sub-Q 1 Week Finasteride 5 Mg Tablet 5 Mg Oral Daily 09/01/09 Flunisolide 200 [place]/25 Ml Clear[place] 1 [place] Intranasal Twice A Day as needed for Prn Orders 12/25/15 Ibuprofen 800 Mg Tablet 1 Tab Oral Every 6-8 Hours as needed for Pain 30 Tablet 12/25/15 Lisinopril 20 Mg Tablet 20 Mg Oral Daily 12/25/15 Metrol Gel 1 Applic Topically As Needed 12/25/15 Niacin (Niaspan) 1,000 Mg Tab.er.24h 1,000 Mg Oral Daily 08/15/14 Polyethylene Glycol 3350 (Miralax) 119 Gm Powder 8 G Oral Daily 08/15/14 Timolol Maleate 5 Ml Drops 1 Drop Right Eye Only Twice A Day 12/31 Past Home Medications Medication Directions Ordered Status Aspirin (Aspir 81) 81 Mg Tablet.dr, 81 Mg Oral Daily 09/01/09 Discontinued Aspirin (Cachorro Aspirin) 325 Mg Tablet, 325 Mg Oral Daily 02/20/08 Discontinued Cachorro Aspirin , 1 Tab Oral Daily 02/16/08 Discontinued Caduet , 03/25/10 Discontinued Detrol La 255 G , 1 Oral Daily 02/16/08 Discontinued Exenatide (Byetta) 5 Mcg Pen, 10 Mcg Sub-Q Twice A Day 02/21/11 Discontinued Exenatide (Byetta) 10 Mcg Pen, 10 Mcg Sub-Q Twice A Day 09/01/09 Discontinued Exenatide (Byetta) 10 Mcg Pen, 1 Injection Daily 02/16/08 Discontinued Ezetimibe/Simvastatin (Vytorin 10-40 Mg Tablet) 1 Tab Tablet, 1 Tab Oral Bedtime 02/20/08 Discontinued Ezetimibe/Simvastatin (Vytorin 10/10 Mg Tablet) 1 Tab Tablet, 1 Tab Oral Daily 02/16/08 Discontinued Ezetimibe/Simvastatin (Vytorin 10-20 Mg Tablet) 1 Tab Tablet, 1 Tab Oral Daily 02/16/08 Discontinued Finasteride 4 Mg Capsule, 1 Cap Oral Daily 02/16/08 Discontinued Metformin 100 Mg Tablet, 1 Tab Oral Daily 02/16/08 Discontinued Metformin Hcl 1,000 Mg Tablet, 1000 Mg Oral Twice A Day 02/20/08 Discontinued Metformin Hcl , 100 Mg Oral Twice A Day 02/16/08 Discontinued Metoclopramide , 03/25/10 Discontinued Metoclopramide Hcl 5 Mg Tablet, 5 Mg Oral Three Times A Day 09/18/11 Discontinued Metoclopramide Hcl (Reglan) 5 Mg Tablet, 5 Mg Oral Three Times A Day Discontinued Metoprolol , 03/25/10 Discontinued Metoprolol Tartrate 100 Mg Tablet, 100 Mg Oral Daily 03/30/10 Discontinued Metrogel , 03/25/10 Discontinued Metrol Gel , 1 Twice A Day 02/16/08 Discontinued Minocycline , 03/25/10 Discontinued Minocycline Hcl 100 Mg Capsule, 100 Mg Oral Daily 03/30/10 Discontinued Minocycline Hcl 100 Mg Tablet, 100 Mg Oral Daily 03/30/10 Discontinued Miralax , 02/16/08 Discontinued Multivitamins W-Minerals/Lut (Centrum Silver Tablet) 1 Tab Tablet, 1 Tab Oral Daily 09/01/09 Discontinued Multivitamins W-Minerals/Lut (Centrum Silver Tablet) 1 Tab Tablet, 1 Tab Oral Daily 02/16/08 Discontinued Niacin (Niaspan) 1,000 Mg Tablet.sa, 1000 Mg Oral Bedtime 02/22/11 Discontinued Niacin (Niaspan) 1,000 Mg Tablet.sa, 1000 Mg Oral At Supper 03/30/10 Discontinued Niacin (Niaspan) 1,000 Mg Tablet.sa, 1000 Mg Oral Bedtime 09/01/09 Discontinued Niacin (Niaspan) 1,000 Mg Tablet.sa, 1000 Mg Oral Daily 02/16/08 Discontinued Oxaprozen 5 Mg Tablet, 1 Tab Oral Daily 02/16/08 Discontinued Oxaprozin 600 Mg Tablet, 600 Mg Oral Twice A Day 03/30/10 Discontinued Oxaprozin 600 Mg Tablet, 600 Mg Oral Twice A Day 09/01/09 Discontinued Oxaprozin , 03/25/10 Discontinued Pristiq , 03/25/10 Discontinued Pristiq , 50 Mg Oral D 03/30/10 Discontinued Pristiq 30MG , 1 Tab Oral Daily 02/22/11 Discontinued Sitagliptin Phosphate (Januvia) 50 Mg Tablet, 50 Mg Oral As Needed 03/31/10 Discontinued Tolterodine Tartrate (Detrol La) 4 Mg Cap.sr.24h, 4 Mg Oral Daily 09/01/09 Discontinued Victoza , 1.2 Mg Sub-Q 03/30/10 Discontinued Victoza , 03/25/10 Discontinued Victoza , 1.2 Mg Sub-Q Daily 03/30/10 Discontinued Social History Social History Problem Response Recorded Date/Time Onset Date Status Chewing Tobacco Status No 07/22/2013 1:24pm Not Applicable Not Applicable Hx Substance Use No 12/25/2015 8:18pm Not Applicable Not Applicable Hx Alcohol Use No 12/25/2015 8:18pm Not Applicable Not Applicable Has the pt used tobacco in the last 12 months No 08/19/2014 7:23am Not Applicable Not Applicable Query Response Start Date Stop Date Smoking Status Never smoker Hospital Discharge Instructions No hospital discharge instructions. Plan of Care Discharge Date 12/25/15 9:38pm Disposition 01 DISCHARGED HOME, SELF-CARE Condition at Discharge Improved Instructions/Education Provided Middle Ear Infection DI for Otitis Media (Middle Ear Infection)-Child Prescriptions See Medication Section Referrals DARVIN MCLEOD II, MD Address: [address] [place] [address] [address] [place], [place] [id number] Additional Instructions/Education Zithromax 250 mg tablets, one tablet daily, begin tomorrow Ibuprofen 800 mg, one tablet up to 4 times daily as needed for pain Return if worse, see your doctor if not improving by Monday Care Plan and Goals Physician Care Plan Problem: Acute otitis media, viral upper respiratory infection Goal: Follow up with primary care provider Instructions: Take medications and follow care plan as discussed/written Zithromax 250 mg tablets, one tablet daily, begin tomorrow Ibuprofen 800 mg, one tablet up to 4 times daily as needed for pain Return if worse, see your doctor if not improving by Monday Functional Status No functional status results. Allergies, Adverse Reactions, Alerts Allergen Type Severity Reaction Status Last Updated Sulfa (Sulfonamide Antibiotics) Allergy Mild Active 12/25/15 Tamsulosin Allergy Intermediate Made Sterile per Pt Active 12/25/15 DECONGESTANT Allergy Intermediate KIDNEYS QUIT Active 07/15/13 Immunizations Query Response on File Recorded Date/Time Hx Influenza Vaccination Yes 08/19/14 7:23am Hx Pneumococcal Vaccination Yes 08/19/14 7:23am Hx Influenza Vaccination Yes 08/19/14 7:23am Vital Signs Acute Vital Signs Vital Response Date/Time Temperature (Fahrenheit) 99.1 deg F (96.8 - 99.1) 12/25/2015 8:14pm Temperature (Calculated Celsius) 37.37850 degrees C (36.0 - 37.3) 12/25/2015 8:14pm Pulse Rate (adult) 95 bpm (60 - 100) 12/25/2015 8:14pm Respiratory Rate 19 breaths/min (10 - 20) 12/25/2015 8:14pm O2 Sat by Pulse Oximetry 96 % (90 - 100) 12/25/2015 8:14pm Blood Pressure 141/76 mm Hg 12/25/2015 8:14pm Height (Feet) 5 feet 12/25/2015 8:14pm Height (Inches) 10.00 inches 12/25/2015 8:14pm Weight (Kilograms) 108.200 kg 12/25/2015 8:14pm Body Mass Index (BMI) 34.0 12/25/2015 8:14pm Results No known relevant diagnostic tests, laboratory data and/or discharge summary. Procedures No known history of procedures. Encounters Encounter Location Arrival/Admit Date Discharge/Depart Date Attending Provider Departed Emergency Room 12/25/15 8:01pm 12/25/15 9: 38pm LISSETTE PAULINO MD Recent Diagnosis
--- OUTSIDE RECORDS SUMMARY | 2016-08-09 08:50 | XMS REPORT | Summary of Care ---
Author Author Cleve Ramos M.D. Organization Unknown Address [address] [place] [address] GADIEL Avilez [address] Phone Unavailable Care Team Providers Care Dba Manager Name Role Phone Cleve Ramso M.D. Unavailable Unavailable Rick Wheat II Unavailable [...] Active Groin pain (789.09, R10.30) Status: Active Bilateral kidney stones (592.0, N20.0) Status: Active BPH with obstruction/lower urinary tract symptoms (600.01, N40.1) Status: Active Medications Name Dates [...] AT BEDTIME * Quantity: 90 Refills: 3 Cleve Ramos M.D. * Start 18-Mar-2016 Active Doxycycline Hyclate 100 MG Oral Capsule TAKE 1 CAPSULE TWICE DAILY. * Quantity: 60 Refills: 1 Clvee Ramos M.D. * Start 27-Jul-2016 Active Allergies and Adverse [...] bladder (596.9, N32.9) Status: Resolved History of prostatitis (V13.89, Z87.438) Status: Resolved History of Pyuria (791.9, N39.0) [...] smoker Vital Signs Date Test Result Details No Known Vitals to report Results Date Description Value Details Results not documented Plan of Care Name Dates Details Planned Observations Planned Goals not documented Planned Encounters Appointment; Provider: Cleve Ramos M.D. On 09-Aug-2016 08:30 Instructions Name Dates Details Instructions not documented Encounters Appointment; Cleve Ramos M.D. Encounter Diagnosis: Problem not documented On 27-Jul-2016 08:30 Appointment; Cleve Ramos M.D. Encounter Diagnosis: Problem [...]
--- OUTSIDE RECORDS SUMMARY | 2016-08-09 08:50 | XMS REPORT | Summary of Care ---
Author Author Cleve Ramos M.D. Organization Unknown Address [address] [place] [address] GADIEL Avilez [address] Phone Unavailable Care Team Providers Care Police Judge Name Role Phone Cleve Ramos M.D. Unavailable [...] Status: Active Microhematuria (599.72, R31.29) Status: Active Chronic prostatitis (601.1, N41.1) Status: Active Difficulty urinating (788.99, R39.198) Status: Active Epididymitis (604.90, N45.1) Status: Active Abdominal pain (789.00, R10.9) Status: Active Bilateral kidney stones (592.0, N20.0) [...] Doxycycline Hyclate 100 MG Oral Capsule - Renew Instructions Name Dates Details Instructions not documented [...]
--- OUTSIDE RECORDS SUMMARY | 2016-08-09 08:50 | XMS REPORT | Summary of Care ---
Author Author Cleve Ramos M.D. Organization Unknown Address [address] [facility] GADIEL Avilez [address] Phone Unavailable Care Team Providers Care Tapping Machine Operator Automatic Name Role Phone Cleve Ramos M.D. 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 * Start 18-Mar-2016 Active Ciprofloxacin HCl - 500 MG Oral Tablet TAKE 1 TABLET BEFORE PROCEDURE WITH DR. RAMOS. * Quantity: 1 Refills: 0 Cleve Ramos M.D. * Start 22-Mar-2016 Active Allergies and Adverse Reactions Name Dates [...] smoker Vital Signs Date Test Result Details 25-Mar-2016 10:38 BP Systolic 130 mm[Hg] Status: [...] Encounters Appointment; Provider: Cleve Ramos M.D. On 01-Apr-2016 08:45 Interventions Provided Medication Changes* Ciprofloxacin HCl - 500 MG Oral Tablet - Start Instructions Name Dates Details Instructions not documented Encounters Appointment; Cleve Raoms M.D. Encounter Diagnosis: Problem not documented On 18-Mar-2016 08:00
--- OUTSIDE RECORDS SUMMARY | 2016-08-09 08:50 | XMS REPORT | Summary of Care ---
Author Author Cleve Ramos M.D. Organization Unknown Address [address] [facility] GADIEL Avilez [address] Phone Unavailable Care Team Providers Care Cover Seamer Name Role Phone Cleve Ramos M.D. Unavailable [...] - 500 MG Oral Tablet - Start * Tamsulosin HCl - 0.4 MG Oral Capsule - Renew Instructions Name Dates Details Instructions not documented Encounters Appointment; Cleve Ramos M.D. Encounter Diagnosis: Problem not documented On 18-Mar-2016 08:00
[2016-08-09 09:27] LABS: BASOPHILS % (AUTO) 0.3 % (0-2); EOSINOPHILS # (AUTO) 0.1 T/MM3 (0-0.5); EOSINOPHILS % (AUTO) 1.4 % (0-4); HCT - HEMATOCRIT 49.8 % (41-53); HGB - HEMOGLOBIN 16.5 GM/DL (13.5-17.5); IMMATURE GRANULOCYTE # (AUTO) 0.01 T/MM3 (0.00-0.03); IMMATURE GRANULOCYTE % (AUTO) 0.2 % (0.0-0.5); LYMPHOCYTES # (AUTO) 1.9 T/MM3 (1-4.8); LYMPHOCYTES % (AUTO) 29.4 % (23-45); MEAN CORPUSCULAR HGB 28.8 UUG (26-34); MEAN CORPUSCULAR HGB CONC(MCHC 33.1 GM/DL (31-37); MEAN CORPUSCULAR VOLUME 87.1 UM3 (80-100); MEAN PLATELET VOLUME 9.7 UM3 (9.4-12.4); MONOCYTES # (AUTO) 0.4 T/MM3 (0-0.8); MONOCYTES % (AUTO) 5.8 % (0-9.0); NEUTROPHILS #(AUTO)-ABSOLUTE 4.1 T/MM3 (1.8-7.7); NEUTROPHILS % (AUTO) 62.9 % (33-66); RED BLOOD COUNT 5.72 M/MM3 (4.50-5.90); WBC - WHITE BLOOD COUNT 6.4 T/MM3 (4.5-11.0)
[2016-08-09] MEDS ORDERED: [UNRECOGNIZED DRUG - CODE] PO (09:33)
[2016-08-09 09:38] LABS: INR 1.06 (0.76-1.04); PROTHROMBIN TIME 11.5 SEC (9.31-12.49)
[2016-08-09 09:40] LABS: ALBUMIN/GLOBULIN RATIO 1.4 RATIO (1.1-2.2); ALKALINE PHOSPHATASE 86 U/L (38-126); ALT (SGPT) 31 U/L (21-72); ANION GAP 11 MEQ/L (5-15); AST (SGOT) 20 U/L (17-59); BUN/CREATININE RATIO 22 RATIO (6-26); CALCIUM 9.4 MG/DL (8.4-10.2); CHLORIDE 103 MEQ/L (98-107); CO2 - CARBON DIOXIDE 29 MEQ/L (22-30); GLOMERULAR FILTRATION RATE 73; GLUCOSE 140 MG/DL (75-110); SODIUM 143 MEQ/L (134-144); TOTAL PROTEIN 6.8 G/DL (6.3-8.2)
--- NOTE | 2016-08-09 10:22 | ANESPREOP ---
Anesthesia Record Date and Time DATE: 08/09/16 TIME: 10:17 Pre-Op Diagnosis obstructive benign prostatae Proposed Surgical Procedure GYRUS TRANSURETHRAL RESECT PROSTATE W/ SPINAL ANESTHESIA NPO since: mn Allergies: Coded Allergies: tamsulosin (Verified Allergy, Intermediate, Made Sterile per Pt, 08/09/16) Sulfa (Sulfonamide Antibiotics) (Verified Allergy, Mild, 08/09/16) Uncoded Allergies: DECONGESTANT (Allergy, Intermediate, KIDNEYS QUIT, 07/15/13) Ht/Wt/BMI Height: 5 ' 11.00 " Weight: 109.600 kg BMI: 33.7 kg/m2 Vital Signs Date Time Temp Pulse Resp B/P Pulse Ox O2 Delivery O2 Flow Rate FiO2 08/09/16 09:03 97.8 91 14 138/78 98 Room Air Medications Inpatient Medications Current Medications Medications (Trade) Dose Ordered Sig/Venu Start Time Stop Time Status Last Admin Dose Admin Lactated Ringer's (Lactated Ringers) 1,000 ml @ 30 mls/hr Q24H 08/09/16 07:00 Amlodipine Besylate (Amlodipine Besylate) 5 Mg Tablet, 5 MG PO DAILY, (Reported) Last Taken: on 08/09/16 0600 Aspirin (Aspir 81) 81 Mg Tablet.dr, 81 MG PO DAILY, (Reported) Last Taken: on 08/08/16 1600 Atorvastatin Calcium (Atorvastatin Calcium) 40 Mg Tablet, 40 MG PO HS, (Reported) Last Taken: on 08/08/16 1600 Canagliflozin/Metformin HCl (Invokamet 150-1, 000 mg Tablet) 1 Each Tablet, 1 TAB PO BID, (Reported) Last Taken: on 08/08/16 1600 Doxycycline Hyclate (Doxycycline Hyclate) 100 Mg Tablet.dr, 1 TAB PO BIDWM, (Reported) Last Taken: on 08/08/16 1600 Exenatide Microspheres (Bydureon) 2 Mg Vial, 2 MG SQ 1 WEEK, (Reported) Last Taken: on 08/08/16 0500 Finasteride (Finasteride) 5 Mg Tablet, 5 MG PO DAILY, (Reported) Last Taken: on 08/08/16 1600 Flunisolide (Flunisolide) 200 [place]/25 Ml [place] , 1 SPRAY CHERYL BID PRN for PRN ORDERS, (Reported) Last Taken: on 08/08/16 0200 Ibuprofen (Ibuprofen) 800 Mg Tablet, 1 TAB PO Q6-8H PRN for PAIN Last Taken: on Unknown Date & Time Lisinopril (Lisinopril) 20 Mg Tablet, 20 MG PO DAILY, (Reported) Last Taken: on 08/08/16 Niacin (Niaspan) 1,000 Mg Tab.er.24h, 1,000 MG PO DAILY, (Reported) Last Taken: on Unknown Date & Time Polyethylene Glycol 3350 (Miralax) 119 Gm Powder, 8 G PO DAILY, (Reported) Last Taken: on 08/08/16 0500 Timolol Maleate (Timolol Maleate) 5 Ml Drops, 1 DROP RIGHT EYE BID, (Reported) Last Taken: on 08/08/16 1600 [Metrol Gel] , 1 APPLIC TOP PRN, (Reported) Last Taken: on Unknown Date & Time Currently on Beta Gregorio: No Medical/Surgical History Anesthesia PMH: Reports: *Diabetes (TYPE II), *Hypertension, *SC ("SILENT" 5-6 YEARS AGO, dissmissed by Dr. Patino 3 yrs ago. ), Cancer (SKIN CANCER TO EAR), Other (lower back pain, tingling in legs every once in awhile ), Pneumonia ( A CHILD), Denies: *Angina, *Dyspnea, Anesthesia Reactions, Arthritis, Asthma, CHF, COPD, CVA/Stroke/TIA, Cardiac Arrythmia (REPORTS NORMAL RATE IS UPPER 90'S INTO 100'S), Clotting Problems, Deep Vein Thrombosis, Glaucoma, Headaches, Hepatitis, Hiatal Hernia, Malignant Hyperthermia, Pacemaker, Reflux, Renal Disease, Rheumatic Fever, Seizures, Sleep Apnea, Thyroid Disease, Tuberculosis Use Chewing Tobacco?: No Second Hand Exposure: No Substance Use Type: does not use Past Surgical History Orthopedic Surgeries: No Abdominal Surgeries: Yes - GALL BLADDER REMOVED Genitourinary Surgeries: Yes - CYSTOSCOPY-MULTIPLE Cardiac Surgeries: No Endocrine Surgeries: No Reproductive Surgeries: No Neurological Surgeries: No Ear Surgeries: No Nose Surgeries: No Throat Surgeries: Yes - TONSILLS REMOVED Other Surgeries: Yes - C-SCOPE/ EGD Anesthesia Adverse Reactions: FOUND none Family Hx of Anesthesia Advers: none Hx of Motion Sickness: No Pertinent Findings Laboratory Tests 08/09/16 09:11 Test 08/09/16 09:11 Prothromb Time International Ratio 1.06 (0.76-1.04) EKG Rhythm: Sinus Rhythm Physical Exam Respiratory: Bilat breath sounds equal, Lungs clear Cardiovascular: FOUND Regular rate, rhythm, FOUND No murmur ASA: 3 Plan Anesthesia Plan: LMA, GETA Regional: Spinal Discussion Discussed risks/options/alternatives of anesthesia and questions answered. Patient consents. Nursing pain assessment noted. Attestation Statement Prior to the delivery of any anesthetic medication, I examined the patient, developed the plan, obtained the patient's consent and discussed the risk and benefits of the procedure with the patient/guardian. RODRICK ROJAS REBEAMER Aug 09, 2016 10:22
[2016-08-09] MEDS: LR 1,000 ML IV SCH (10:35)
[2016-08-09] MEDS ORDERED: FENTANYL 100mcg/2ml INJECTION ONE (10:40)
[2016-08-09] MEDS ORDERED: MIDAZOLAM 5mg/5ml INJECTION ONE (10:40)
[2016-08-09] MEDS ORDERED: KETAMINE 500mg/10ml INJECTION ONE (10:59)
[2016-08-09] MEDS ORDERED: MIDAZOLAM 2mg/2ml INJECTION ONE (11:34)
[2016-08-09] MEDS ORDERED: FUROSEMIDE 20 MG/2 ML INJECTION ONE (11:35)
[2016-08-09] MEDS: NORMAL SALINE 1,000 ML IV SCH (11:56)
[2016-08-09] MEDS ORDERED: METRONIDAZOLE 1% TOP PRN (12:00)
[2016-08-09] MEDS ORDERED: BELLADONNA-OPIUM 16.2-60mg SUPP RECTALLY PRN (12:00)
[2016-08-09] MEDS ORDERED: ONDANSETRON 4mg/2ml INJECTION IV PRN ×2 (12:00→12:30)
[2016-08-09] MEDS ORDERED: FLUTICASONE NASAL SPRAY 50 MCG NAS PRN (12:00)
--- NOTE | 2016-08-09 12:10 | ANESPO ---
Post-Op Note Date 08/09/16 Time: 12:07 Status Pt Participated in Evaluation: Pt participated in person Vital Signs Date Time Temp Pulse Resp B/P Pulse Ox O2 Delivery O2 Flow Rate FiO2 08/09/16 11:47 97.3 84 20 118/66 92 Room Air Respiratory Function: Airway patent Cardiovascular Function: Regular pulse Mental Status: Alert/oriented Pain Level Intensity: 0 Hydration: IV infusing Complications during Recovery None apparent Follow-Up Instructions Instructions Per Surgeon RODRICK ROJAS CRNA Aug 09, 2016 12:10
[2016-08-09] MEDS: SCOPOLAMINE 1.5 MG PATCH TD SCH (12:27)
[2016-08-09] MEDS ORDERED: METOCLOPRAMIDE 10mg/2ml INJECTION IV PRN (12:30)
--- NOTE | 2016-08-09 13:11 | NUR ---
Admit Transferred Pt from cart to bed via slide board. CBI in place. Post op VS started at this time. Pt denies nausea and pain at this time. Call light w/in reach, will continue to monitor.
[2016-08-09] MEDS: DOCUSATE SODIUM 100 MG CAPSULE PO SCH ×2 (15:00→21:42)
[2016-08-09 15:12] LABS: ANION GAP 16 MEQ/L (5-15); BUN/CREATININE RATIO 26 RATIO (6-26); CALCIUM 8.6 MG/DL (8.4-10.2); CHLORIDE 103 MEQ/L (98-107); CO2 - CARBON DIOXIDE 22 MEQ/L (22-30); CREATININE 0.8 MG/DL (0.8-1.5); GLOMERULAR FILTRATION RATE 94; GLUCOSE 159 MG/DL (75-110); POTASSIUM 4.3 MEQ/L (3.6-5); SODIUM 141 MEQ/L (134-144)
[2016-08-09] MEDS ORDERED: METR55GE2 TOP (15:29)
--- NOTE | 2016-08-09 17:07 | OPNOTEF ---
DATE OF SURGERY 08/09/2016 SURGEON Cleve Ramos MD PREOPERATIVE DIAGNOSES Obstructive BPH. History of prostatitis. POSTOPERATIVE DIAGNOSES Obstructive BPH. History of prostatitis. OPERATION PERFORMED Transurethral resection of the prostate. ANESTHESIA Spinal. INDICATIONS Mr. Leary is a 76-year-old male with severe prostatism from obstructive BPH. He also has history of persistent prostatitis. The patient was brought in today to have TURP to unobstruct the bladder outlet. DESCRIPTION OF OPERATION The patient was taken to the cystoscopy suite and under spinal anesthesia he was placed in dorsal lithotomy position, prepped and draped in usual fashion for cystoscopic procedures. The urethra was calibrated with a 30-Fr Cathy sound. A 26-Fr Gyrus resectoscope was inserted into the bladder with a visualizing obturator. The bladder was heavily trabeculated but no bladder tumor or foreign body was noted. A small black stone was in the bladder. The bladder outlet was tightly obstructing from bilobed hyperplasia of the prostate. The urethra was very obstructed. Using bipolar Gyrus resecting loop, the prostate was resected initially at the bladder neck and the resection was extended to the verumontanum. This was done systematically in a circumferential manner. Excellent opening was created. The prostate was highly vascular. In the posterior fossa, there was a significant venous channel open. Most of these were controlled with cautery but one large vein was unable to be completely brought under control. However, with gentle compression on the tissue we stopped the bleeding. Therefore, it was decided to stop the resection at this point without attempting to further coagulate this area. Prostatic chips were evacuated with an Ellik. After assuring complete evacuation of the chips, a 24-Fr 3-way Pillai catheter was inserted with a catheter stylet. The 30-cc balloon was inflated and the bladder was irrigated clear by hand. Urine showed essentially clear urine with the catheter in the bladder. Continuous bladder irrigation was started with saline and the patient was taken to the recovery room in stable condition. STACEY
[2016-08-09] MEDS ORDERED: DOXYCYCLINE HYCLATE PO SCH (17:30)
[2016-08-09] MEDS ORDERED: DOXYCYCLINE 100 MG TABLET PO SCH (17:30)
--- NOTE | 2016-08-09 17:32 | NUR ---
Summary Pt A&O X3. VS stable on RA. Pts urine del angel red at this time, CBI running. Pt denies pain and nausea. Pt requested to ambulate in the hallway, Pt tolerated well with standby assistance and gait belt. Pt up in recliner at this time. Call light w/in reach.
[2016-08-09] MEDS ORDERED: HYDROCODONE/APAP 5 mg/325 mg TABLET PO PRN (18:00)
[2016-08-09] MEDS ORDERED: MORPHINE SULFATE 4 MG SYRINGE IV PRN (18:00)
[2016-08-09] MEDS ORDERED: METFORMIN HCL PO SCH (21:00)
[2016-08-09] MEDS ORDERED: CANAGLIFLOZIN PO SCH (21:00)
[2016-08-09] MEDS: ATORVASTATIN 40 MG TABLET PO SCH (21:42)
[2016-08-09] MEDS: TIMOLOL 0.5% EYE DROPS 5ml RIGHT EYE SCH (21:43)
[2016-08-10] VITALS (24 sets, daily range): BP systolic 106–143; BP diastolic 35–78; PULSE 79–98; RESP 15–26; TEMP 96.4–100.1; O2SAT 93–100
--- NOTE | 2016-08-10 05:14 | NUR ---
SHIFT SUMMARY PATIENT IS ALERT AND ORIENTED X3 THIS SHIFT. VITAL SIGNS ARE STABLE ON ROOM AIR. PATIENT DENIES ANY PAIN, NAUSEA, OR VOMITING THIS SHIFT. PATIENT HAS MAINTAINED BEDREST OVERNIGHT, BUT REQUESTS TO BE UP FOR BREAKFAST. CBI CONTINUES TO BE MAYERS IN COLOR WITH SMALL CLOTS. BOTTLE 12 OF IRRIGANT IN PROGRESS. WILL CONTINUE TO MONITOR.
[2016-08-10] MEDS: LR 1,000 ML IV SCH (07:00)
[2016-08-10] MEDS ORDERED: METFORMIN 1,000 MG TABLET PO SCH (07:30)
[2016-08-10] MEDS: CANAGLIFLOZIN 100 MG TABLET PO SCH ×2 (07:30→17:24)
[2016-08-10] MEDS ORDERED: LEVOFLOXACIN 500 mg IVPB 500 MG in D5W 100 ML IV ONE (08:00)
[2016-08-10] MEDS: AMLODIPINE 5 MG TABLET PO SCH (09:00)
[2016-08-10] MEDS: TIMOLOL 0.5% EYE DROPS 5ml RIGHT EYE SCH ×2 (09:00→20:54)
[2016-08-10] MEDS: FINASTERIDE 5 MG TABLET PO SCH (09:00)
[2016-08-10] MEDS: LISINOPRIL 20 MG TABLET PO SCH (09:00)
[2016-08-10] MEDS: DOCUSATE SODIUM 100 MG CAPSULE PO SCH ×3 (09:00→20:54)
[2016-08-10] MEDS: NIACIN ER 500 MG TABLET PO SCH (09:00)
[2016-08-10] MEDS: POLYETHYL.GLYCOL 3350 PACKET 17gm PO SCH (09:00)
[2016-08-10] MEDS: NORMAL SALINE 1,000 ML IV SCH (09:02)
[2016-08-10 09:22] LABS: BASOPHILS % (AUTO) 0.1 % (0-2); EOSINOPHILS # (AUTO) 0.1 T/MM3 (0-0.5); EOSINOPHILS % (AUTO) 0.6 % (0-4); HCT - HEMATOCRIT 45.3 % (41-53); HGB - HEMOGLOBIN 15.1 GM/DL (13.5-17.5); IMMATURE GRANULOCYTE # (AUTO) 0.02 T/MM3 (0.00-0.03); IMMATURE GRANULOCYTE % (AUTO) 0.2 % (0.0-0.5); LYMPHOCYTES # (AUTO) 1.7 T/MM3 (1-4.8); LYMPHOCYTES % (AUTO) 18.8 % (23-45); MEAN CORPUSCULAR HGB 28.9 UUG (26-34); MEAN CORPUSCULAR HGB CONC(MCHC 33.3 GM/DL (31-37); MEAN CORPUSCULAR VOLUME 86.8 UM3 (80-100); MEAN PLATELET VOLUME 9.9 UM3 (9.4-12.4); MONOCYTES # (AUTO) 0.7 T/MM3 (0-0.8); MONOCYTES % (AUTO) 7.4 % (0-9.0); NEUTROPHILS #(AUTO)-ABSOLUTE 6.4 T/MM3 (1.8-7.7); NEUTROPHILS % (AUTO) 72.9 % (33-66); RED BLOOD COUNT 5.22 M/MM3 (4.50-5.90); WBC - WHITE BLOOD COUNT 8.8 T/MM3 (4.5-11.0)
--- NOTE | 2016-08-10 09:23 | NUR ---
JHONNY RIDDLE IS 2. Addendum: 08/10/16 at 0924 by MAHI TRIVEDI SW Amended: Links added.
--- NOTE | 2016-08-10 10:50 | NUR ---
PT LEFT FLOOR PT LEFT THE FLOOR AT THIS TIME, VIA CART. ACCOMPANIED BY PRE-OP STAFF. PT REPORTING PAIN AT IV SITE, PRE-OP RN NOTIFIED AND WILL CONTINUE TO MONITOR.
[2016-08-10] MEDS ORDERED: PROPOFOL 500mg 50 ML IV ONE ×3 (11:35→12:24)
[2016-08-10] MEDS ORDERED: METOPROLOL 5mg/5ml INJECTION IV ONE (11:50)
--- NOTE | 2016-08-10 12:00 | ANESPREOP ---
Anesthesia Record Date and Time DATE: 08/10/16 TIME: 10:18 Pre-Op Diagnosis S/P TURP bleeding with clots Proposed Surgical Procedure GYRUS TRANSURETHRAL RESECT PROSTATE W/ SPINAL ANESTHESIA NPO since: mn Allergies: Coded Allergies: tamsulosin (Verified Allergy, Intermediate, Made Sterile per Pt, 08/09/16) Sulfa (Sulfonamide Antibiotics) (Verified Allergy, Mild, 08/09/16) Uncoded Allergies: DECONGESTANT (Allergy, Intermediate, KIDNEYS QUIT, 07/15/13) Ht/Wt/BMI Height: 5 ' 11.00 " Weight: 109.500 kg BMI: 33.7 kg/m2 Vital Signs Date Time Temp Pulse Resp B/P Pulse Ox O2 Delivery O2 Flow Rate FiO2 08/10/16 08:48 89 16 08/10/16 08:47 97.3 131/77 96 Room Air Medications Inpatient Medications Current Medications Medications (Trade) Dose Ordered Sig/Venu Start Time Stop Time Status Last Admin Dose Admin Lactated Ringer's 1,000 ml @ 30 mls/hr Q24H 08/09/16 07:00 08/09/16 10:35 30 MLS/HR Sodium Chloride (Normal Saline IV) 1,000 ml @ 100 mls/hr Q10H 08/09/16 11:56 08/10/16 09:02 100 MLS/HR Ondansetron HCl (Zofran) 4 mg Q3H PRN 08/09/16 12:00 Belladonna Alkaloids/Opium (B & O Suppository) 1 supp Q3H PRN 08/09/16 12:00 Doxycycline Hyclate (Vibramycin) 100 mg BIDWM 08/09/16 17:30 08/10/16 07:22 DC 08/09/16 17:16 100 MG Docusate Sodium (Colace) 100 mg TID 08/09/16 15:00 08/09/16 21:42 100 MG Amlodipine Besylate (Norvasc) 5 mg DAILY 08/10/16 09:00 Atorvastatin Calcium (LIPITOR 40 mg) 40 mg HS 08/09/16 22:00 08/09/16 21:42 40 MG Finasteride (Proscar) 5 mg DAILY 08/10/16 09:00 Fluticasone Propionate (Flonase) 1 spray BID PRN 08/09/16 12:00 Lisinopril (Prinivil) 20 mg DAILY 08/10/16 09:00 Polyethylene Glycol (Miralax) 8.5 g DAILY 08/10/16 09:00 Timolol Hemihydrate (Timoptic 0.5% Eye Drops) 1 drop BID 08/09/16 21:00 08/09/16 21:43 1 DROP Non-Formulary Medication 1 tab BID 08/09/16 21:00 UNV Non-Formulary Medication 1 tab BIDWM 08/09/16 17:30 UNV Non-Formulary Medication 2 mg Q7D@08/16/16 09:00 Niacin (Niaspan) 1,000 mg DAILY 08/10/16 09:00 Non-Formulary Medication 1 applic DAILY PRN 08/09/16 12:00 Ondansetron HCl (Zofran) 4 mg O PRN 08/09/16 12:30 08/09/16 12:37 DC 08/09/16 12:27 4 MG Metoclopramide HCl (REGLAN Inj) 10 mg O PRN 08/09/16 12:30 08/09/16 12:36 DC 08/09/16 12:27 10 MG Scopolamine HBr (Transderm-Scop) 1.5 mg Q3D 08/09/16 12:30 08/09/16 12:27 1.5 MG Scopolamine HBr (Transderm-Scop Patch Removal) 1 removal Q3D 08/12/16 12:30 Morphine Sulfate (Morphine) 1-3 MG Q1H PRN 08/09/16 18:00 Acetaminophen/ Hydrocodone Bitart ([place] 5/325) 1-2 TABS Q3H PRN 08/09/16 18:00 Canagliflozin (Invokana) 150 mg 30,08/10/16 07:30 Metformin HCl (Glucophage) 1,000 mg 30,08/10/16 07:30 08/10/16 07:30 DC Amlodipine Besylate (Amlodipine Besylate) 5 Mg Tablet, 5 MG PO DAILY, (Reported) Last Taken: on 08/09/16 0600 Aspirin (Aspir 81) 81 Mg Tablet.dr, 81 MG PO DAILY, (Reported) Last Taken: on 08/08/16 1600 Atorvastatin Calcium (Atorvastatin Calcium) 40 Mg Tablet, 40 MG PO HS, (Reported) Last Taken: on 08/08/16 1600 Canagliflozin/Metformin HCl (Invokamet 150-1, 000 mg Tablet) 1 Each Tablet, 1 TAB PO BID, (Reported) Last Taken: on 08/08/16 1600 Doxycycline Hyclate (Doxycycline Hyclate) 100 Mg Tablet.dr, 1 TAB PO BIDWM, (Reported) Last Taken: on 08/08/16 1600 Exenatide Microspheres (Bydureon) 2 Mg Vial, 2 MG SQ 1 WEEK, (Reported) Last Taken: on 08/08/16 0500 Finasteride (Finasteride) 5 Mg Tablet, 5 MG PO DAILY, (Reported) Last Taken: on 08/08/16 1600 Flunisolide (Flunisolide) 200 [place]/25 Ml [place] , 1 SPRAY CHERYL BID PRN for PRN ORDERS, (Reported) Last Taken: on 08/08/16 0200 Ibuprofen (Ibuprofen) 800 Mg Tablet, 1 TAB PO Q6-8H PRN for PAIN Last Taken: on Unknown Date & Time Lisinopril (Lisinopril) 20 Mg Tablet, 20 MG PO DAILY, (Reported) Last Taken: on 08/08/16 Metronidazole (Metronidazole) 55 Gm Gel.w.pump, 1 APPLIC TOP DAILY PRN for PRN ORDERS, (Reported) Last Taken: on Unknown Date & Time Niacin (Niaspan) 1,000 Mg Tab.er.24h, 1, 000 MG PO DAILY, (Reported) Last Taken: on Unknown Date & Time Polyethylene Glycol 3350 (Miralax) 119 Gm Powder, 8 G PO DAILY, (Reported) Last Taken: on 08/08/16 0500 Timolol Maleate (Timolol Maleate) 5 Ml Drops, 1 DROP RIGHT EYE BID, (Reported) Last Taken: on 08/08/16 1600 Currently on Beta Gregorio: No Medical/Surgical History Anesthesia PMH: Reports: *Diabetes (TYPE II), *Hypertension, *MT ("SILENT" 5-6 YEARS AGO, dissmissed by Dr. Patino 3 yrs ago. ), Cancer (SKIN CANCER TO EAR), Cardiac Arrythmia (REPORTS NORMAL RATE IS UPPER 90'S INTO 100'S), Hyperlipidemia , Other (lower back pain, tingling in legs every once in awhile ), Pneumonia ( A CHILD), Denies: *Angina, *Dyspnea, Anesthesia Reactions, Arthritis, Asthma , CHF, COPD, CVA/Stroke/TIA, Clotting Problems, Deep Vein Thrombosis, Glaucoma, Headaches, Hepatitis, Hiatal Hernia, Malignant Hyperthermia, Pacemaker, Reflux, Renal Disease, Rheumatic Fever, Seizures, Sleep Apnea, Thyroid Disease, Tuberculosis Smoking Status: Former smoker Use Chewing Tobacco?: No Second Hand Exposure: No Substance Use Type: does not use Alcohol Intake: none Past Surgical History Orthopedic Surgeries: No Abdominal Surgeries: Yes - GALL BLADDER REMOVED Genitourinary Surgeries: Yes - CYSTOSCOPY-MULTIPLE Cardiac Surgeries: No Endocrine Surgeries: No Reproductive Surgeries: No Neurological Surgeries: No Ear Surgeries: No Nose Surgeries: No Throat Surgeries: Yes - TONSILLS REMOVED Other Surgeries: Yes - C-SCOPE/ EGD Anesthesia Adverse Reactions: FOUND none Family Hx of Anesthesia Advers: none Hx of Motion Sickness: No Pertinent Findings Laboratory Tests 08/09/16 14:42 08/10/16 09:07 Test 08/09/16 09:11 Prothromb Time International Ratio 1.06 (0.76-1.04) EKG Rhythm: Sinus Rhythm Physical Exam Respiratory: Bilat breath sounds equal, Lungs clear Cardiovascular: FOUND Regular rate, rhythm, FOUND No murmur Airway Assessment Mallampati Score: II TMD: 3 Fingerbreadths Neck Extension: Fair Overall Assessment: No Airway Concerns ASA: 3 Plan Anesthesia Plan: LMA, GETA Regional: Spinal Discussion Discussed risks/options/alternatives of anesthesia and questions answered. Patient consents. Nursing pain assessment noted. Present: Family Member Attestation Statement Prior to the delivery of any anesthetic medication, I examined the patient, developed the plan, obtained the patient's consent and discussed the risk and benefits of the procedure with the patient/guardian. VICKEY JENNINGS DIRECTOR COUNCIL ON AGING Aug 10, 2016 10:20
--- NOTE | 2016-08-10 12:07 | PNF ---
DATE 08/10/2016 Room 110 Mr. Leary is postop day #1 of Gyrus TURP. Vital signs are stable and afebrile. The patient is alert and in no acute distress. He voices no complaints except the blood in the urine he sees in the catheter. He voices his concern as urine continues to be red despite CBI. CBI ran through 14 bottles of two liter container overnight to keep the Pillai catheter patent. He hadn't eaten since yesterday and breakfast has not been served. Urine is del angel red with CBI going at a brisk rate. His abdomen is soft and nontender. IMPRESSION He has significant bleeding from the prostate fossa. There was an open vein in the posterior wall near the bladder neck that I was unable to completely stop from oozing. I am sure that is the location of the bleeding. PLAN Will have to take him back to OR and try to cauterize the bleeder. The procedure was discussed with the patient and the patient is agreeable. He will not need spinal anesthesia for this. We will likely have to keep him another night after the cauterization on CBI. We will obtain CBC this morning and keep him on NPO and put him on Levaquin. STACEY
[2016-08-10] MEDS ORDERED: PHENYLEPHRINE 10mg/ml INJECTION ONE (12:08)
[2016-08-10] MEDS ORDERED: NORMAL SALINE 1,000 ML IV SCH (12:46)
--- NOTE | 2016-08-10 13:27 | ANESPO ---
Post-Op Note Date 08/10/16 Time: 12:07 Status Pt Participated in Evaluation: Pt participated in person Vital Signs Date Time Temp Pulse Resp B/P Pulse Ox O2 Delivery O2 Flow Rate FiO2 08/10/16 13:15 84 26 122/63 100 Room Air 08/10/16 12:55 3.00 08/10/16 12:49 97.5 Respiratory Function: Airway patent Cardiovascular Function: Regular pulse Mental Status: Alert/oriented Pain Level Intensity: 0 Hydration: IV infusing Complications during Recovery None apparent Follow-Up Instructions Instructions Per Surgeon VICKEY JENNINGS CRNA Aug 10, 2016 13:27
--- NOTE | 2016-08-10 13:37 | NUR ---
ARRIVED TO FLOOR PT ARRIVED BACK TO THE FLOOR AT THIS TIME. PT ABLE TO TRANSFER SELF FROM THE CART TO THE BED WITH MINIMAL ASSIST. PT HERNANDEZ CATHETER PATENT AND HOOKED UP TO CONTINUOUS BLADDER IRRIGATION. DRAINING MAYERS RED IN COLOR AT THIS TIME. DR. MAC CONTACTED BY THIS RN AND ELECTRICAL FITTER. SOME "PULSING" NOTED TO PT'S CATHETER. DR. MAC CAME TO THE FLOOR AND GAVE NO FURTHER ORDERS AT THIS TIME. WILL CONTINUE TO MONITOR. POST OP VITAL SIGNS STARTED.
--- NOTE | 2016-08-10 17:55 | NUR ---
PROGRESS NOTE PT IS ALERT AND ORIENTED X3. VITAL SIGNS STABLE AT THIS TIME. THE PT HAS NOT MET DISCHARGE CRITERIA AT THIS TIME AND REMAINS AN OUTPATIENT STATUS. THE PT HAS NORMAL SALINE RUNNING AT 50CC/HR THROUGH IV SITE IN HIS RIGHT HAND. PT HAS HERNANDEZ CATHETER THAT IS PATENT AND IS CONNECTED TO CONTINUOUS BLADDER IRRIGATION AT THIS TIME. PT'S URINE OUTPUT IS PEACH COLORED AT THIS TIME AND HAS NOT HAD ANY NOTED CLOTS SINCE FIRST ARRIVING BACK TO THE FLOOR. THE PT DENIES ANY PAIN. THIS RN SPOKE WITH DR. MAC REGARDING BLOOD SUGAR CHECKS, PRN ACCUCHECK ORDER RECEIVED. PT HAS EATEN SINCE COMING BACK FROM SURGERY AND DENIES ANY NAUSEA. PER DR. MAC, PT IS TO REMAIN ON BEDREST FOR THE REMAINDER OF THE NIGHT AND MONITOR URINE OUTPUT FOR COLOR AND CLOTS. PT RESTING IN BED AT THIS TIME, CALL LIGHT WITHIN REACH, SCDS IN PLACE, VISITOR IN ROOM. NO CONCERNS NOTED, WILL CONTINUE TO MONITOR.
--- NOTE | 2016-08-10 18:01 | NUR ---
CM SPOKE WITH PT, INTRODUCED SELF, EXPLAINED ROLE, PROVIDED CONTACT INFO. PT STATED [place] LIVES [place], ALONE, AND HIS DC PLAN IS TO RETURN HOME ALONE. HE SAID HIS FRIEND CAN PICK HIM UP TOMORROW AFTER 5 PM. HE SAID HE HAS NO TRANSPORTATION UNTIL THEN. HE DENIED HAVING ANY DC NEEDS/CONCERNS. HE SAID HE HAS 2 CANES, A WALKER, AND A SCOOTER AND DOES NOT NEED ANY FURTHER DME. HE SAID HE HAS A WALK IN SHOWER. HE SAID HE CAN DC HOME WITH A HERNANDEZ CATH IF NEEDED, AND HE IS COMFORTABLE CHANGING THIS. HE DENIED NEEDING HOME HEALTH WHEN THIS WORKER ASKED. HE SAID HE HAS "STOCKED UP" ON FOOD SO HE HAS FOOD WHEN HE RETURNS HOME. HE SAID HE KNOWS HE IS IN OUTPT STATUS AND ASKED IF HE IS GOING TO BE CHANGED TO INPT. THIS WORKER EXPLAINED THE ORDER IS UP TO THE DOCTOR TO DETERMINE THIS. PT STATED HE HOPES TO BE ABLE TO BE DC'D TOMORROW. ENCOURAGED HIM TO CALL IF QUESTIONS/NEEDS ARISE. Addendum: 08/10/16 at 1804 by MAHI SEAMAN Amended: Links added.
--- NOTE | 2016-08-10 18:50 | NUR ---
PROGRESS NOTE THIS RN CHANGED THE PT'S TURN PAD THAT HAD A LARGE SPOT OF BLOOD THAT WAS NOTED TO BE DRIPPING FROM THE TIP OF THE PT'S PENIS. THE PT DENIES PAIN AT THIS TIME, THE PT WAS CLEANED UP AND A PAPER ALIZA WAS ALSO LINED UNDERNEATH THE PT. THIS RN SPOKE WITH DR. MAC WHO WAS ON THE FLOOR AT THIS TIME AND REPORTED THAT IT WAS AN EXPECTED SIGN. WILL CONTINUE TO MONITOR.
--- NOTE | 2016-08-10 19:09 | OPNOTEF ---
DATE OF SURGERY August 10, 2016 SURGEON Cleve Ramos MD PREOPERATIVE DIAGNOSIS Clot retention and hemorrhagic prostate. POSTOPERATIVE DIAGNOSIS Clot retention and hemorrhagic prostate. OPERATION PERFORMED Cystoscopy with evacuation of clots and fulguration of prostate bleeder. ANESTHESIA TIVA INDICATIONS Mr. Leary is a 76-year-old male who underwent Gyrus TURP yesterday. He continued to ooze with clot retention and therefore the patient was brought back to evacuate the clots and stop the bleeding which is presumed to be from prostate fossa. NARRATIVE OF PROCEDURE Patient was taken to the cystoscopy suite and under intravenous anesthesia, the patient was placed in dorsal lithotomy position and prepped and draped in the usual fashion for cystoscopy. A 23-Fr cystoscope was inserted into the bladder. The bladder was full of clots and was evacuated with an Ellik. The prostate was unable to be examined due to clots on the entire fossa. These were scraped off and attempts were made to visualize. We were not able to do so. Therefore, the cystoscope was removed and a Gyrus resectoscope sheath was inserted into the bladder. With a dissecting loop prostate clots were scraped off to look at the prostate tissue. There was diffuse oozing around the bladder neck and previous resection site posteriorly and anteriorly. These were cauterized extensively. With the blood pressure up to 150 systolic, urine became clear. Therefore, the resectoscope was removed and a 24-Fr 3-way Pillai catheter was inserted with the 30 cc balloon inflated. Continuous bladder irrigation was started. He was taken to the recovery room in stable condition. STACEY
[2016-08-10] MEDS: ATORVASTATIN 40 MG TABLET PO SCH (20:54)
[2016-08-11] VITALS (9 sets, daily range): BP systolic 112–146; BP diastolic 60–83; PULSE 83–107; RESP 16–20; TEMP 97.9–99.4; O2SAT 93–97
--- NOTE | 2016-08-11 05:05 | NUR ---
SHIFT SUMMARY PATIENT IS ALERT AND ORIENTED X3 THIS SHIFT. VITAL SIGNS ARE STABLE ON ROOM AIR, HOWEVER, PATIENT DID HAVE A LOW GRADE TEMP EARLY IN SHIFT. PATIENT HAS MAINTAINED BEDREST THIS SHIFT. PATIENT ATTEMPTED TO USE THE BEDPAN ONCE, BUT HAD NO RESULTS. IRRIGANT SOLUTION CONTINUES TO BE PEACH TO LIGHT PEACH IN COLOR; BOTTLE NUMBER 21 IRRIGATING NOW. WILL CONTINUE TO MONITOR.
[2016-08-11] MEDS ORDERED: SODIUM CHLORIDE 0.9% IR ONE (06:30)
[2016-08-11] MEDS: LR 1,000 ML IV SCH (07:00)
[2016-08-11] MEDS: SODIUM CHLORIDE IR PRN ×4 (07:10→10:00)
[2016-08-11] MEDS: AMINOCAPROIC ACID IR PRN ×4 (07:10→10:00)
[2016-08-11] MEDS: POLYETHYL.GLYCOL 3350 PACKET 17gm PO SCH (07:52)
[2016-08-11] MEDS: TIMOLOL 0.5% EYE DROPS 5ml RIGHT EYE SCH ×2 (07:54→20:23)
[2016-08-11] MEDS: FINASTERIDE 5 MG TABLET PO SCH (07:55)
[2016-08-11] MEDS: NIACIN ER 500 MG TABLET PO SCH (07:55)
[2016-08-11] MEDS: LISINOPRIL 20 MG TABLET PO SCH (07:55)
[2016-08-11] MEDS: AMLODIPINE 5 MG TABLET PO SCH (07:55)
[2016-08-11] MEDS: DOCUSATE SODIUM 100 MG CAPSULE PO SCH ×3 (07:55→20:24)
[2016-08-11] MEDS: CANAGLIFLOZIN 100 MG TABLET PO SCH ×2 (07:55→17:08)
--- NOTE | 2016-08-11 16:03 | NUR ---
SURGICAL CRITERIA SURGICAL CRITERIA COMPLETED AT THIS TIME PATIENT WAS CHANGED TO AN INPT AND EXPECTED TO STAY THE NIGHT. WILL CONTINUE TO MONITOR.
--- OUTSIDE RECORDS SUMMARY | 2016-08-11 16:08 | XMS REPORT | Continuity of Care Document ---
Author Author [facility] Organization [facility] Address Unknown Phone Unavailable Support Name Relationship Address Phone LISSETTE PAULINO MD Caregiver [address] [place] [address] Unavailable DARVIN MCLEOD II, MD Caregiver [address] [place] [address] [phone] DWIGHT KENT Next Of Kin [address] [place] [address] C Insurance Providers Payer Name Policy Number Subscriber Name Relationship Medicare [id number] Darvin Leary 18 Self Medicare Supp Wps [id number] Darvin Leary 18 Self Problems Medical Problems [...] 1 Qty 02/16/08 02/20/08 Discontinued Flunisolide 1 [place] NS BID PRN 1 Qty 09/01/09 Active [...] F (96.8 - 99.1) Temperature (Calculated Celsius) 36.21432 degrees C (36.0 - 37.3) Pulse Rate [...] 25, 2009 8:46am LAB TEST FORM REQUEST [id number] - Lipase July 15, 2013 7:03pm 155 [...] - 20% Calcium oxalate dihydrateTest Performed by: [place] [address] Advertising Agent: Jett Delgadillo III, M.D. [place] [address] Vinyl Top Installer Elie Coello MD Stone Source July 23, [...] Has specimen been collected/obtained? Y Urine Specific [place] July 17, 2014 8:04pm 1.020 - Has [...] Encounters Encounter Location Date/Time Departed Emergency Room [facility] 07/17/14 7:23pm Recent Diagnosis
--- OUTSIDE RECORDS SUMMARY | 2016-08-11 16:09 | XMS REPORT | Summary of Care ---
Author Author Cleve Ramos M.D. Organization Unknown Address [address] [place] [address] GADIEL Avilez [address] Phone Unavailable Care Team Providers Care Data Management Engineer Name Role Phone Cleve Ramos M.D. [...] Active Abdominal pain (789.00, R10.9) Status: Active Groin pain (789.09, R10.30) Status: Active Bilateral kidney stones (592.0, N20.0) Status: Active BPH with obstruction/lower urinary tract symptoms (600.01, N40.1) Status: Active Chronic prostatitis (601.1, [...] TWICE DAILY. * Quantity: 60 Refills: 1 Cleve Ramos M.D. * Start 27-Jul-2016 Active Allergies [...] M.D. Encounter Diagnosis: Problem not documented On 03-Aug-2016 08:00 Appointment; Cleve Ramos M.D. Encounter Diagnosis: [...]
--- OUTSIDE RECORDS SUMMARY | 2016-08-11 16:09 | XMS REPORT | Summary of Care ---
Author Author Cleve Ramos M.D. Organization Unknown Address [address] [place] [address] GADIEL Avilez [address] Phone Unavailable Care Team Providers Care Property And Equipment Clerk Name Role Phone Cleve Ramos M.D. Unavailable [...] Active Chronic prostatitis (601.1, N41.1) Status: Active Clot retention of urine (788.29, R33.8) Status: Active Hemorrhage of prostate (602.1, N42.1) Status: Active Medications Name Dates Details Lisinopril [...] Encounters Appointment; Provider: Cleve Ramos M.D. On 10-Aug-2016 11:30 Instructions Name Dates Details Instructions not documented Encounters Appointment; Celve Ramos M.D. Encounter Diagnosis: Problem not documented [...]
--- NOTE | 2016-08-11 18:28 | NUR ---
STATUS PT A/O X3 THIS SHIFT. PT REMAINED ON BEDREST THIS SHIFT BESIDES TRANSFERRING TO AND FROM BEDSIDE COMMODE THIS AM TO HAVE A BM. PT TRANSFERS WITH STANDBY ASSIST. PT DENIES PAIN. PT REPORTED FEELING DISCOURAGED RELATED TO HIS EXTENDED HOSPITAL STAY. VITAL SIGNS STABLE ON ROOM AIR THIS SHIFT. UPON FIRST TRANSFER FROM BED TO COMMODE, IMMEDIATE RETURN OF MAYERS URINE WAS OBTAINED IN HERNANDEZ CATHETER. THIS RN HAD TO INCREASE THE RATE OF THE CBI DURING THIS TIME AND HAND IRRIGATE THE CATHETER TO PREVENT CLOTS FROM FORMING. PT TOLERATED WELL. PT DID HAVE A MODERATE SOFT BM THIS AM. URINE HAS CLEARED AND IS PINK IN COLOR AT THIS TIME AND THIS RN HAS NOTICED SIGNIFICANT IMPROVEMENT THROUGHOUT SHIFT. CBI RATE DECREASED THROUGHOUT SHIFT DUE TO CLARITY OF URINE OUTPUT. PT HAS TURNED SELF IN BED FROM LEFT SIDE TO BACK FREQUENTLY. BED ALARM REMAINS ON. SCD'S ON. WILL CONTINUE TO MONITOR CLOSELY.
[2016-08-11] MEDS: ATORVASTATIN 40 MG TABLET PO SCH (20:24)
[2016-08-12 04:00] VITALS: BP 115/59; PULSE 87; RESP 16; TEMP 97.1; O2SAT 94
--- NOTE | 2016-08-12 07:32 | NUR ---
SHIFT REPORT PT A/O X3 THIS SHIFT. PT REMAINED ON BEDREST THIS SHIFT. VITAL SIGNS STABLE ON RM AIR. DR MAC ENTERED ORDERS TO DISCONNECT CBI AND REMOVE HERNANDEZ AFTER BREAKFAST. PT TRANSFERS WITH STANDBY ASSIST. PT DENIES PAIN. SLEPT WELL THROUGH THE NIGHT. NO BM THIS SHIFT. URINE HAS CLEARED AND IS PINK IN COLOR AT THIS TIME. PT HAS TURNED SELF IN BED FROM LEFT SIDE TO BACK FREQUENTLY. BED ALARM REMAINS ON. SCD'S ON. WILL CONTINUE TO MONITOR CLOSELY. WILL DISCHARGE THIS AFTERNOON.
[2016-08-12 08:00] VITALS: BP 111/71; PULSE 92; RESP 20; TEMP 97.9; O2SAT 97
[2016-08-12] MEDS: CANAGLIFLOZIN 100 MG TABLET PO SCH (08:05)
[2016-08-12 08:10] VITALS: PULSE 92; RESP 20
[2016-08-12] MEDS: TIMOLOL 0.5% EYE DROPS 5ml RIGHT EYE SCH (08:58)
[2016-08-12] MEDS: POLYETHYL.GLYCOL 3350 PACKET 17gm PO SCH (08:58)
[2016-08-12] MEDS: LISINOPRIL 20 MG TABLET PO SCH (08:58)
[2016-08-12] MEDS: AMLODIPINE 5 MG TABLET PO SCH (08:59)
[2016-08-12] MEDS: NIACIN ER 500 MG TABLET PO SCH (08:59)
[2016-08-12] MEDS: FINASTERIDE 5 MG TABLET PO SCH (08:59)
[2016-08-12] MEDS: DOCUSATE SODIUM 100 MG CAPSULE PO SCH ×2 (09:01→15:06)
--- NOTE | 2016-08-12 11:17 | PNF ---
DATE: 08/12/2016 SUBJECTIVE/OBJECTIVE Mr. Leary had a good night last night but required a sleeping pill. He is afebrile and vital signs are stable. He complains of back pain only due to lying in bed all day. He had a bowel movement and urine did turn slightly bloody after that. Through the night CBI was essentially clamped and urine is very light peach in color. He is anxious to get up out of bed and hopefully go home later today. Abdomen is soft, benign and nontender. IMPRESSION Bleeding has slowed sufficiently enough that I think we will be able to take the catheter out later today. If urine remains fairly clear after ambulation and breakfast then we will remove the catheter and do a voiding trial. If he is able to urinate well enough without significant bleeding then he will be going home without the catheter. If he is unable to urinate satisfactorily, we will have him go home with a Pillai catheter for the next few days. STACEY
[2016-08-12 11:30] VITALS: BP 101/63; PULSE 101; RESP 18; TEMP 97.6; O2SAT 96
[2016-08-12] MEDS ORDERED: SCOPOLAMINE PATCH REMOVAL TD SCH (12:30)
[2016-08-12] MEDS: SCOPOLAMINE 1.5 MG PATCH TD SCH (12:50)
[2016-08-12] MEDS ORDERED: LIDOCAINE JELLY 2% 20ml UROJET MM ONE (14:00)
[2016-08-12 16:20] VITALS: PULSE 101; RESP 18; O2SAT 96
--- NOTE | 2016-08-12 16:50 | NUR ---
Discharge Pt discharged at this time via ambulatory status through the main entrance in the company of an adult. VS stable on RA. IV DC'd prior to discharge, catheter tip intact. 20fr, 10cc coude catheter in place at time of discharge. Pt sent home with leg bag as well. Pt instructed to DC wright catheter on Monday morning prior to follow up appt on Monday per Dr. Ramos's order. Wright care teaching done with Pt. This RN discussed medications, activity, diet, restrictions, and follow up appt with Pt. Prescription for pain medication was sent with Pt to take to preferred pharmacy. Pt verbalized understanding.
[2016-08-13] MEDS ORDERED: FLUT16SP EA NOSTRIL (12:01)
[2016-08-13] MEDS ORDERED: ASPI-1085 PO (12:23)
[2016-08-13] MEDS ORDERED: TAMS0.4C47 PO (12:23)
[2016-08-16] MEDS ORDERED: EXENATIDE SQ SCH (09:00)
== END 2016-08-12 16:50 | disposition home or self-care (01) | DRG 908 ==
LOC: SCU 08:43 → SRG 08:45 → SCU 08-11 15:56
PROVIDERS: ADMIT Specialist; ATTEND Specialist
PROC: 0VB08ZZ Excision of Prostate, Via Natural or Artificial Opening Endoscopic (ICD-10-PCS; principal; 2016-08-09 11:04)
PROC: 0W3R8ZZ Control Bleeding in Genitourinary Tract, Via Natural or Artificial Opening Endoscopic (ICD-10-PCS; 2016-08-10)
DX: N99.820 Postprocedural hemorrhage of a genitourinary system organ or structure following a genitourinary system procedure (principal); N13.8 Other obstructive and reflux uropathy; N40.1 Benign prostatic hyperplasia with lower urinary tract symptoms; N32.89 Other specified disorders of bladder; N41.1 Chronic prostatitis; Z98.890 Other specified postprocedural states; E11.9 Type 2 diabetes mellitus without complications; I10 Essential (primary) hypertension; E78.5 Hyperlipidemia, unspecified; I25.2 Old myocardial infarction; Z79.84 Long term (current) use of oral hypoglycemic drugs; Z79.899 Other long term (current) drug therapy; Z79.82 Long term (current) use of aspirin; Z79.51 Long term (current) use of inhaled steroids; Z88.2 Allergy status to sulfonamides; Z88.8 Allergy status to other drugs, medicaments and biological substances; Z87.891 Personal history of nicotine dependence; Z90.49 Acquired absence of other specified parts of digestive tract; Z85.828 Personal history of other malignant neoplasm of skin
CPT/HCPCS: 36415; 80048; 80053; 82948; 85025; 85610; 88305; 93005

== ENCOUNTER 2016-08-13 11:21 | Emergency (ER) | payer MEDICARE, OTHER ==
[~2016-08-13] VITALS: Ht 177.8 cm; Wt 108.8 kg
[~2016-08-13 11:21] MED LIST changes: -ASPI-557 PO; -AZIT250T PO; -IOHEXOL 300 MG/ML 50ml INJECTION ONE; -LEVOFLOXACIN 500 mg IVPB 500 MG in D5W 100 ML IV ONE; -LIDOCAINE 1% (10mg/ml) 2ml SDV INJ ONE; +METR55GE2 TOP; +[UNRECOGNIZED DRUG - CODE] PO; -[UNRECOGNIZED DRUG - OTHER] TOP
--- OUTSIDE RECORDS SUMMARY | 2016-08-13 11:26 | XMS REPORT | Continuity of Care Document ---
Author Author [facility] Organization [facility] Address Unknown Phone Unavailable Support Name Relationship Address Phone JANINE MAC MD Caregiver [address] [place] [address] Unavailable JANINE MAC MD Caregiver [address] [place] [address] Unavailable DARVIN MCLEOD II, MD Caregiver [address] [place] [address] Unavailable DONTE DWIGHT Next Of Kin [address] [place] [address] Insurance Providers Guarantor Darvin Leary Address [address] [place] [address] Email [email or web address] Payer Medicare Policy Number [id number] Subscriber's Name Darvin Leary Relationship 18 Self Effective Date 05 Payer [facility] Medicare [facility] Wps Policy Number [id number] Subscriber's Name Darvin Leary Relationship 18 Self Effective Date 05 Advance Directives Directive Response Recorded Date/Time Ordered Resuscitation Status Full Code 08/08/16 10:59am Resuscitation Documents on File Yes 08/09/16 9:19am DPOA for Healthcare Only No 08/09/16 9:19am Living Will No 08/09/16 9:19am Advanced Directive or Resuscitation Comments PAMPHLET PROVIDED 08/09/16 9: 19am Problems Active Problems Medical Problem Onset Date [...] Mg Tablet 5 Mg Oral Daily 12/25/15 Atorvastatin Calcium 40 Mg Tablet 40 Mg Oral Bedtime 12/25/15 Canagliflozin/Metformin Hcl (Invokamet 150-1,000 Mg Tablet) 1 Each Tablet 1 Tab Oral Twice A Day 12/25/15 Doxycycline Hyclate 100 Mg Tablet. 1 Tab Oral Twice Daily With Meals 08/09/16 Exenatide Microspheres (Bydureon) 2 Mg Vial 2 Mg Sub-Q 1 Week Finasteride 5 Mg Tablet 5 Mg Oral Daily 09/01/09 Flunisolide 200 Bailey/25 Ml Bailey 1 Bailey Intranasal Twice A Day as needed for Prn Orders 12/25/15 Ibuprofen 800 Mg Tablet 1 Tab Oral Every 6-8 Hours as needed for Pain 30 Tablet 12/25/15 Lisinopril 20 Mg Tablet 20 Mg Oral Daily 12/25/15 Metronidazole 55 Gm Gel.w.pump 1 Applic Topically Daily as needed for Prn Orders 08/09/16 Niacin (Niaspan) 1,000 Mg Tab.er.24h 1,000 Mg Oral Daily 08/15/14 Polyethylene Glycol 3350 (Miralax) 119 Gm Powder 8 G Oral Daily 08/15/14 Timolol Maleate 5 Ml Drops 1 Drop Right Eye Only Twice A Day 12/31 Past Home Medications Medication Directions Ordered Status Aspirin (Aspir 81) 81 Mg Tablet.dr 81 Mg Oral Daily 08/15/14 Discontinued Aspirin (Aspir 81) 81 Mg Tablet.dr 81 Mg Oral Daily 09/01/09 Discontinued Aspirin (CityLive Aspirin) 325 Mg Tablet, 325 Mg Oral [...] Problem Response Recorded Date/Time Onset Date Status Reason for Hospitalization TURP 08/12/2016 4:42pm Not Applicable Not Applicable Chewing Tobacco Status No 07/22/2013 1:24pm Not Applicable Not Applicable Hx Substance Use No 08/09/2016 9:34am Not Applicable Not Applicable Hx Alcohol Use No 08/09/2016 9:34am Not Applicable Not Applicable Has the pt used tobacco in the last 12 months No 08/19/2014 7:23am Not Applicable Not Applicable Query Response Start Date Stop Date Smoking Status Never smoker Hospital Discharge Instructions Instructions: Care Instructions: Reason for Hospitalization: TURP I was in the hospital because (patient own words): "SURGERY, SCRAPING OF PROSTATE" Discharge Diet: diabetic diet Discharge Activity: as instructed Follow Up Appointments: 08/17/2016 at 10:00 am at [facility]ino [facility] office Pending Lab / Results: Will review at f/u apt Patient Instructions: See discharge instructions Wound/Incision Care: NA Pain Scale Utilized to Educate Patient: 0-10 Pain Scale Pain Management/Treatment: tylenol/tramadol as needed with a siggnificant PVR Expected Signs/Symptoms: intermittent blood in the urine R no carotid and Notify Physician If: fever >100.5 it is a 70 times a day During Business Hours:: Please call the physician's office After Business Hours:: Please call [phone] and have the quick print operator page the physician. Condition at time of discharge: Fair Plan of Care Discharge Date 08/12/16 4:50pm Disposition 01 DISCHARGED HOME, SELF-CARE Instructions/Education Provided [facility] TURP/Laser/Button TURP Postop Instructions Prescriptions See Medication Section Care Plan and Goals See Discharge Instructions Section Functional Status Query Response Date Recorded Mobility Status Ambulatory w/assist August 12, 2016 4:42pm Assistive Devices None August 12, 2016 4:42pm Activity Limitations None August 12, 2016 4:42pm Feeding Ability Independent August 12, 2016 4:42pm Toileting Ability Assist August 12, 2016 4:42pm Grooming Ability Assist August 12, 2016 4:42pm Dressing Ability Assist August 12, 2016 4:42pm Driving Ability Independent August 12, 2016 4:42pm Housework Ability Independent August 12, 2016 4:42pm Meal Preparation Ability Independent August 12, 2016 4:42pm Stair Climbing Ability Independent August 12, 2016 4:42pm Ability to complete ADL's impeded by No change August 12, 2016 4:42pm Cognitive/Perceptual Impairments Impaired vision August 12, 2016 4:42pm Visual Assistive Devices Glasses August 12, 2016 12:50pm Preferred Method of Learning Hands on August 12, 2016 12:50pm Allergies, Adverse Reactions, Alerts Allergen Type Severity Reaction Status Last Updated Sulfa (Sulfonamide Antibiotics) Allergy Mild Active 08/09/16 Tamsulosin Allergy Intermediate Made Sterile per Pt Active 08/09/16 DECONGESTANT Allergy Intermediate KIDNEYS QUIT Active 07/15/13 Immunizations Query Response on File Recorded Date/Time Hx Influenza Vaccination Y fall 201508/09/16 9:34am Hx Pneumococcal Vaccination Y 201408/09/16 9:34am Hx Influenza Vaccination Y fall 201508/09/16 9:34am Vital Signs Acute Vital Signs Vital Response Date/Time Temperature (Fahrenheit) 97.6 deg F (96.8 - 99.1) 08/12/2016 11:30am Temperature (Calculated Celsius) 36.77404 degrees C (36.0 - 37.3) 08/12/2016 11:30am Temperature Source Oral 08/12/2016 11:30am Pulse Rate (adult) 101 bpm (60 - 100) 08/12/2016 4:20pm Respiratory Rate 18 breaths/min (10 - 20) 08/12/2016 4:20pm O2 Sat by Pulse Oximetry 96 % (90 - 100) 08/12/2016 4:20pm Oxygen Delivery Method Room Air 08/12/2016 11:30am Oxygen Delivery Method Room Air 08/12/2016 4:20pm Oxygen Flow Rate 3.00 L/min 08/10/2016 12:55pm Blood Pressure 101/63 mm Hg 08/12/2016 11:30am Blood Pressure Source Automatic Cuff 08/12/2016 11:30am Height (Feet) 5 feet 08/09/2016 9:03am Height (Inches) 11.00 inches 08/09/2016 9:03am Weight (Kilograms) 108.000 kg 08/12/2016 8:00am Body Mass Index (BMI) 33.7 08/09/2016 9:03am Results Laboratory Results Test Name Result Units Flags Reference Collection Date/Time Result Date/ Time Comments White Blood Count 8.8 T/MM3 4.5-11.0 08/10/2016 9:0708/10/2016 9: 22am Red Blood Count 5.22 M/MM3 4.50-5.90 08/10/2016 9:0708/10/2016 9: 22am Hemoglobin 15.1 GM/DL 13.5-17.5 08/10/2016 9:0708/10/2016 9:22am Hematocrit 45.3 % 41-53 08/10/2016 9:08/10/2016 9:22am Mean Corpuscular Volume 86.8 UM3 80-100 08/10/2016 9:08/10/2016 9: 22am Mean Corpuscular Hemoglobin 28.9 UUG 26-34 08/10/2016 9:2016 9:22am Mean Corpuscular Hemoglobin Concent 33.3 GM/DL 31-37 08/10/2016 9:0708/10/2016 9:22am RDW Standard Deviation 47.1 FL 36.9-50.2 08/10/2016 9:08/10/2016 9 :22am Platelet Count 149 T/MM3 130-400 08/10/2016 9:08/10/2016 9:22am Mean Platelet Volume 9.9 UM3 9.4-12.4 08/10/2016 9:08/10/2016 9: 22am Neutrophils (%) (Auto) 72.9 % H 33-66 08/10/2016 9:08/10/2016 9: 22am Lymphocytes (%) (Auto) 18.8 % L 23-45 08/10/2016 9:08/10/2016 9: 22am Monocytes (%) (Auto) 7.4 % 0-9.0 08/10/2016 9:0708/10/2016 9:22am Eosinophils (%) (Auto) 0.6 % 0-4 08/10/2016 9:0708/10/2016 9:22am Basophils (%) (Auto) 0.1 % 0-2 08/10/2016 9:0708/10/2016 9:22am Immature Granulocyte % (Auto) 0.2 % 0.0-0.5 08/10/2016 9:2016 9:22am Absolute Neutrophils (auto) 6.4 T/MM3 1.8-7.7 08/10/2016 9:072016 9:22am Absolute Lymphocytes (auto) 1.7 T/MM3 1-4.8 08/10/2016 9:2016 9:22am Absolute Monocytes (auto) 0.7 T/MM3 0-0.8 08/10/2016 9:0708/10/2016 9:22am Absolute Eosinophils (auto) 0.1 T/MM3 0-0.5 08/10/2016 9:072016 9:22am Absolute Basophils (auto) 0.0 T/MM3 0-0.2 08/10/2016 9:08/10/2016 9:22am Absolute Immature Granulocyte (auto 0.02 T/MM3 0.00-0.03 08/10/2016 9: 0708/10/2016 9:22am Prothromb Time International Ratio 1.06 H 0.76-1.04 08/09/2016 9:11am 08/09/2016 9:38am THERAPUTIC RANGE=2.00-3.00 FOR ANTI-THROMBOSIS THERAPUTIC RANGE=2.50-3.50 FOR IMPLANTED VALVE Icterus Index < 2 0-7 08/09/2016 2:42pm 08/09/2016 3:12pm Chemistry Specimen Hemolysis 100 H 0-25 08/09/2016 2:42pm 08/09/2016 3 :12pm 71-285: Specimen Exhibited Moderate Hemolysis - can falsely elevate K (Potassium), Troponin I, CA 19-9, PTH, CSF Glucose, Urine Protein, and can falsely decrease Phenytoin. Turbidity < 20 0-20 08/09/2016 2:42pm 08/09/2016 3:12pm Sodium Level 141 MEQ/L 134-144 08/09/2016 2:42pm 08/09/2016 3:12pm Potassium Level 4.3 MEQ/L 3.6-5 08/09/2016 2:42pm 08/09/2016 3:12pm Chloride Level 103 MEQ/L 98-107 08/09/2016 2:42pm 08/09/2016 3:12pm Carbon Dioxide Level 22 MEQ/L 22-30 08/09/2016 2:42pm 08/09/2016 3: 12pm Anion Gap 16 MEQ/L H 5-15 08/09/2016 2:42pm 08/09/2016 3:12pm Blood Urea Nitrogen 21.0 MG/DL H 9-20 08/09/2016 2:42pm 08/09/2016 3: 12pm Creatinine 0.8 MG/DL D 0.8-1.5 08/09/2016 2:42pm 08/09/2016 3:21pm BUN/Creatinine Ratio 26 RATIO 6-26 08/09/2016 2:42pm 08/09/2016 3:12pm Glomerular Filtration Rate Calc 94 08/09/2016 2:42pm 08/09/2016 3: 12pm Glucose Level 159 MG/DL H 75-110 08/09/2016 2:42pm 08/09/2016 3:12pm Calculated Osmolality 277 MOSM/KG 261-280 08/09/2016 2:42pm 08/09/2016 3:12pm Calcium Level 8.6 MG/DL D 8.4-10.2 08/09/2016 2:42pm 08/09/2016 3:21pm Total Bilirubin 1.00 MG/DL 0.20-1.30 08/09/2016 9:08/09/2016 9: 40am Alkaline Phosphatase 86 U/L 38-126 08/09/2016 9:08/09/2016 9:40am Total Protein 6.8 G/DL 6.3-8.2 08/09/2016 9:08/09/2016 9:40am Albumin 4.0 G/DL 3.5-5.0 08/09/2016 9:08/09/2016 9:40am Globulin 2.8 G/DL 2.4-3.6 08/09/2016 9:08/09/2016 9:40am Albumin/Globulin Ratio 1.4 RATIO 1.1-2.2 08/09/2016 9:08/09/2016 9 :40am Aspartate Amino Transf (AST/SGOT) 20 U/L 17-59 08/09/2016 9:11am 2016 9:40am Alanine Aminotransferase (ALT/SGPT) 31 U/L 21-72 08/09/2016 9:11am 9:40am Glucometer 144 mg/dL H 75-110 08/12/2016 11:28am 08/12/2016 11:31am Procedures Procedure Status Date Provider(s) Transurethral resection of prostate (TURP) Completed 08/09/16 JANINE MAC MD Encounters Encounter Location Arrival/Admit Date Discharge/Depart Date Attending Provider Discharged Inpatient [facility] 08/11/16 3:56pm 08/12/16 4:50pm JANINE MAC MD
--- OUTSIDE RECORDS SUMMARY | 2016-08-13 11:26 | XMS REPORT | Continuity of Care Document ---
Author Author [facility] Organization [facility] Address Unknown Phone Unavailable Support Name Relationship Address Phone LISSETTE PAULINO MD Caregiver [address] [place] [address] Unavailable DARVIN MCLEOD II, MD Caregiver [address] [place] [address] [phone] DWIGHT KENT Next Of Kin [address] [place] [address] C Insurance Providers Payer Name Policy Number Subscriber Name Relationship Medicare [id number] Darvin Leary 18 Self Medicare Supp Wps [id number] Darvin Leary 18 Self Problems Medical Problems [...] 1 Qty 02/16/08 02/20/08 Discontinued Flunisolide 1 [place] NS BID PRN 1 Qty 09/01/09 Active [...] F (96.8 - 99.1) Temperature (Calculated Celsius) 36.12465 degrees C (36.0 - 37.3) Pulse Rate [...] 25, 2009 8:46am LAB TEST FORM REQUEST [id number] - Lipase July 15, 2013 7:03pm 155 [...] - 20% Calcium oxalate dihydrateTest Performed by: [place] [address] Lab Tester: Jett Delgadillo III, M.D. [place] [address] Ore Feeder Elie Coello MD Stone Source July 23, [...] Has specimen been collected/obtained? Y Urine Specific [place] July 17, 2014 8:04pm 1.020 - Has [...] Encounters Encounter Location Date/Time Departed Emergency Room [facility] 07/17/14 7:23pm Recent Diagnosis
[2016-08-13 11:35] VITALS: Ht 177.8 cm; Wt 108.8 kg
--- NOTE | 2016-08-13 11:54 | ERPDOC ---
Departure Disposition Decision Date: Aug 13, 2016 Disposition Decision Time: 12:30 Disposition: 01 DISCHARGED HOME, SELF-CARE Impression Impression Impression: Primary Impression: Hernandez catheter problem Encounter type: initial encounter Qualified Codes: T83.9XXA - Unspecified complication of genitourinary prosthetic device, implant and graft, initial encounter Condition: Improved Seen By: Physician only Referrals: DARVIN MCLEOD II, MD (Family) Patient Instructions: Hernandez Catheter Placement and Care (ED) Problems/Meds/Labs Reviewed?: Yes Medications reviewed and manag: Yes Additional Instructions: 1) DRINK PLENTY OF FLUIDS, ESPECIALLY WATER 2) CONTINUE HERNANDEZ CARE DIRECTED 3) RETURN TO ER NEEDED FOR WORSENING SYMPTOMS OR FURTHER CONCERNS 4) CONTINUE MEDICATIONS, ETC DIRECTED BY DR. RAMOS Follow up care ordered?: Yes Mental Status: Alert, Oriented HPI - Male General Chief Complaint: Male Urogenital Problems Stated Complaint: ISSUES WITH CATHETER Time Seen by Provider: 11:43 Source: patient Exam Limitations: no limitations HPI - Male Initial Comments 76 YO WM who presents to ER for evaluation and treatment of hernandez catheter problems. Patient had TURP by Dr. Ramos on 08/09/16. He had another cystoscopy on 08/10/16, to cauterize bleeding vessels. He was dismissed home with hernandez catheter and instructions. This morning, he noted that he had increased "pressure" in his bladder and urine was coming out around the hernandez catheter. There is still some urine in the bag, but most seems to be coming out around the catheter. Occurred At: home Pain Scale: Now: 3/10 Severity/Quality: other (PRESSURE) Location: suprapubic Radiation: none Associated Symptoms: DENIES: diaphoresis, fever/chills, lower back pain, nausea /vomiting Allergies: Coded Allergies: tamsulosin (Verified Allergy, Intermediate, Made Sterile per Pt, 08/13/16) Sulfa (Sulfonamide Antibiotics) (Verified Allergy, Mild, 08/13/16) Uncoded Allergies: DECONGESTANT (Allergy, Intermediate, KIDNEYS QUIT, 07/15/13) Past History Past Medical History Metabolic: diabetes, hypercholesterolemia, hypertension ENMT: other Cardiac: SD Respiratory: pneumonia GI: IBS, constipation Male: BPH, kidney stones Musculoskeletal: back pain, osteoarthritis Surgical History General: EGD, colonoscopy, gallbladder, tonsils Cardiac: cardiac cath Reproductive/: TURP (08/09/16) Family History Family PMH: FOUND: hypertension Vaccines Hx Influenza Vaccination: Yes (FALL 2015) Hx Pneumococcal Vaccination: Yes (2014) Social History Does patient use chewing tobac: No Second Hand Exposure: No Substance Use Type: does not use Alcohol Intake: none Review of Systems Constitutional Constitutional: DENIES: chills, dizziness, fever, syncope, weakness Eyes General: DENIES: erythema, exudate, photophobia ENMT Nose: DENIES: nosebleeds Mouth/Throat: DENIES: change in swallowing, sore throat Cardiovascular Cardiac: DENIES: chest pain, dyspnea on exertion Rhythm/Rate: DENIES: irregular beat, palpitations GI Upper Abdomen: DENIES: nausea, vomiting Lower Abdomen: DENIES: diarrhea General: hematuria, see HPI Comments CATHETER SINCE SURGERY ON MONDAY08/09/16 Neurological General: DENIES: headache, seizures, syncope Physical Exam General General Nourishment: appears stated age, no acute distress Vitals and Pain First Documented Vital Signs Date Time Temp Pulse Resp B/P Pulse Ox O2 Delivery O2 Flow Rate FiO2 08/13/16 11:35 97.5 110 16 140/69 96 Room Air Weight: Kilograms: 108.800 Height (feet): 5 Height (inches): 10.00 Triage Pain Scale: RN VS reviewed by Provider: Yes Normal Exams: Head: Normocephalic w/o trauma Eyes: Pupils are PERRLA w/ EOMI, No scleral icterus ENMT: No facial trauma, nasal exudates, pharyngeal erythema Chest/Resp: Clear all holden, with good airflow, and symmetry bilaterally CV: Regular rate and rhythm, without murmur or gallop, Pulses 2+ all extremities, capillary refill, <2 seconds all ext. Abdomen: Bowel sounds positive, soft, non-tender, non-distended, no hepatosplenomegaly Musculoskeletal: No tenderness, or deformity noted, good range of motion Integumentary: No rashes, hives, or bruising noted Neurologic: Patient is alert, and oriented, cranial nerves, motor/sensory/ cerebellar Psychiatric: Patient exhibits, appropriate attention, emotion and affect (brief) Comments CATHETER IN PLACE. TEA COLORED URINE IN BAG. Differential Diagnoses Considering: Hematuria, Urinary Retention, UTI, Other (Post-operative hematuria ; hernandez catheter dysfunction; ) Progress Results/Orders Orders Procedure Category Date Status Time Irrigate Hernandez (Ed) EDM 08/13/16 Transmitted 11:49 Progress Progress 1215: After hernandez irrigated, patient reports improvement in pressure and discomfort. He is "ready to go." Catheter draining bloody irrigation fluid and urine. SHON HERNÁNDEZ MD Aug 13, 2016 11:54
[2016-08-13] MEDS ORDERED: FLUT16SP EA NOSTRIL (12:01)
--- OUTSIDE RECORDS SUMMARY | 2016-08-13 12:08 | XMS REPORT | Continuity of Care Document ---
Author Author [facility] Organization [facility] Address Unknown Phone Unavailable Support Name Relationship Address Phone LISSETTE PAULINO MD Caregiver [address] [place] [address] Unavailable DARVIN MCLEOD II, MD Caregiver [address] [place] [phone] DWIGHT KENT Next Of Kin [address] [place] [address] C Insurance Providers Payer Name Policy Number Subscriber Name Relationship Medicare [id number] Darvin Leary 18 Self Medicare Supp Wps [id number] Darvin Leary 18 Self Problems Medical Problems [...] 1 Qty 02/16/08 02/20/08 Discontinued Flunisolide 1 [place] NS BID PRN 1 Qty 09/01/09 Active [...] F (96.8 - 99.1) Temperature (Calculated Celsius) 36.98651 degrees C (36.0 - 37.3) Pulse Rate [...] 25, 2009 8:46am LAB TEST FORM REQUEST [id number] - Lipase July 15, 2013 7:03pm 155 [...] - 20% Calcium oxalate dihydrateTest Performed by: [place] [address] Gem Stone Cutter: Jett Delgadillo III, M.D. [place] [address] Oil Field Laborer Elie Coello MD Stone Source July 23, [...] Has specimen been collected/obtained? Y Urine Specific [employer] July 17, 2014 8:04pm 1.020 - Has [...] Encounters Encounter Location Date/Time Departed Emergency Room [facility] 07/17/14 7:23pm Recent Diagnosis
[2016-08-13] MEDS ORDERED: TAMS0.4C47 PO (12:23)
[2016-08-13] MEDS ORDERED: ASPI-1085 PO (12:23)
[2016-08-13 12:43] VITALS: BP 110/65; PULSE 96; RESP 16; TEMP 98.6; O2SAT 98
--- NOTE | 2016-08-13 12:43 | NUR ---
DISMISSAL INSTRUCTIONS REVIEWED. FLUIDS ENCOURAGED. DISCHARGED AMB
== END 2016-08-13 12:43 | disposition home or self-care (01) ==
LOC: ED 11:21
DX: T83.031A Leakage of indwelling urethral catheter, initial encounter (principal); Y73.1 Therapeutic (nonsurgical) and rehabilitative gastroenterology and urology devices associated with adverse incidents; Y92.009 Unspecified place in unspecified non-institutional (private) residence as the place of occurrence of the external cause

== ENCOUNTER 2016-08-13 17:11 | Emergency (ER) | payer MEDICARE, OTHER ==
[~2016-08-13] VITALS: Ht 177.8 cm; Wt 110.0 kg
[~2016-08-13 17:11] MED LIST changes: +ASPI-1085 PO; +FLUT16SP EA NOSTRIL; +TAMS0.4C47 PO
[2016-08-13 17:13] VITALS: Ht 177.8 cm; Wt 110.0 kg
--- OUTSIDE RECORDS SUMMARY | 2016-08-13 17:34 | XMS REPORT | Continuity of Care Document ---
Author Author [facility] Organization [facility] Address Unknown Phone Unavailable Support Name Relationship Address Phone LISSETTE PAULINO MD Caregiver [address] [place] [address] Unavailable DARVIN MCLEOD II, MD Caregiver [address] [facility] [place] [address] [phone] DWIGHT KENT Next Of Kin [address] [place] [address] C Insurance Providers Payer Name Policy Number Subscriber Name Relationship Medicare [id number] Darvin Laery 18 Self Medicare Supp Wps [id number] Darvin Leray 18 Self Problems Medical Problems Problem Onset [...] 1 Qty 02/16/08 02/20/08 Discontinued Flunisolide 1 [place] NS BID PRN 1 Qty 09/01/09 Active [...] F (96.8 - 99.1) Temperature (Calculated Celsius) 36.24703 degrees C (36.0 - 37.3) Pulse Rate [...] 25, 2009 8:46am LAB TEST FORM REQUEST [id number] - Lipase July 15, 2013 7:03pm 155 [...] - 20% Calcium oxalate dihydrateTest Performed by: [place] [address] Kitchen Runner: Jett Delgadillo III, M.D. [place] [address] Riding Instructor Eile Coello MD Stone Source July 23, 2013 [...] Has specimen been collected/obtained? Y Urine Specific [place] July 17, 2014 8:04pm 1.020 - Has [...] Encounters Encounter Location Date/Time Departed Emergency Room [facility] 07/17/14 7:23pm Recent Diagnosis
--- OUTSIDE RECORDS SUMMARY | 2016-08-13 17:35 | XMS REPORT | Continuity of Care Document ---
Author Author [facility] Organization [facility] Address Unknown Phone Unavailable Support Name Relationship Address Phone DARVIN MCLEOD II, MD Caregiver [address] [place] [address] Unavailable SHON HERNÁNDEZ MD Caregiver [address] [place] [address] Unavailable DWIGHT KENT Next Of Kin [address] [place] [address] Insurance Providers Guarantor Darvin Leary Address [address] [place] [address] Email [email or web address] Medicare Policy Number [id number] Subscriber's Name Darvin Leary Relationship 18 Self Effective Date 05 Payer [employer] Medicare Supp Wps Policy Number [id number] Subscriber's Name Darvin Leary Relationship 18 Self Effective Date 05 Advance Directives Directive Response Recorded Date/Time Advanced Directives Type DNR Documentation 08/13/16 11:35am Chief Complaint and Reason for Visit Chief Complaint Male Urogenital Problems Reason for Visit [id number] Problems Active Problems Medical Problem Onset Date Status Atypical chest pain Unknown Acute Hernandez catheter problem Unknown Acute Ureteral calculus, left Unknown Acute Ureteral calculus, right Unknown Acute Ureteral calculus, right Unknown Acute Past Problems Medical Problem Onset Date Acute otitis media Unknown Viral upper respiratory infection Unknown Medications Current Home Medications Medication Dose Units Route Directions Days Qty Instructions Start Date Amlodipine Besylate 5 Mg Tablet 5 Mg Oral Daily 12/25/15 Aspirin (Aspirin Ec) 81 Mg Tablet. 81 Mg Oral Daily 08/13/16 Atorvastatin Calcium 40 Mg Tablet 40 Mg Oral Bedtime 12/25/15 Canagliflozin/Metformin Hcl (Invokamet 150-1,000 Mg Tablet) 1 Each Tablet 1 Tab Oral Twice A Day 12/25/15 Doxycycline Hyclate 100 Mg Tablet. 100 Mg Oral Twice Daily With Meals 08/09/16 Exenatide Microspheres (Bydureon) 2 Mg Vial 2 Mg Sub-Q Every Monday At 6: 00PM 07/15/13 Finasteride 5 Mg Tablet 5 Mg Oral Daily 09/01/09 Fluticasone Propionate (Fluticasone Prop 50 Mcg/Actuation Nasal [place]) 120 [place]/16 G [place] 1 [place] Each Nostril Twice A Day as needed for Prn Orders 08/13/16 Ibuprofen 800 Mg Tablet 1 Tab Oral Every 6-8 Hours as needed for Pain 30 Tablet 12/25/15 Lisinopril 20 Mg Tablet 20 Mg Oral Daily 12/25/15 Metronidazole 55 Gm Gel.w.pump 1 Applic Topically Daily as needed for Rosacea 08/09/16 Niacin (Niaspan) 1,000 Mg Tab.er.24h 1,000 Mg Oral Daily 08/15/14 Polyethylene Glycol 3350 (Miralax) 119 Gm Powder 8.5 G Oral Daily 08/15/14 Tamsulosin Hcl 0.4 Mg Cap.er.24h 0.4 Mg Oral Bedtime 08/13/16 Timolol Maleate 5 Ml Drops 1 Drop Both Eyes Twice A Day 12/25/15 Past Home Medications Medication Directions Ordered Status Aspirin (Aspir 81) 81 Mg Tablet.dr, 81 Mg Oral Daily 08/15/14 Discontinued Aspirin (Aspir 81) 81 Mg Tablet.dr, 81 [...] Applicable Not Applicable Hx Substance Use No 08/13/2016 12:10pm Not Applicable Not Applicable Hx Alcohol Use No 08/13/2016 12:10pm Not Applicable Not Applicable Has the pt used tobacco in the last 12 months No 08/19/2014 7:23am Not Applicable Not Applicable Query Response Start Date Stop Date Smoking Status Never smoker Hospital Discharge Instructions No hospital discharge instructions. Plan of Care Discharge Date 08/13/16 12:43pm Disposition 01 DISCHARGED HOME, SELF-CARE Condition at Discharge Improved Instructions/Education Provided Hernandez Catheter Placement and Care (ED) Prescriptions See Medication Section Referrals DARVIN MCLEOD II, MD Address: [address] [place] [address] [place] [place], [place] [id number] Additional Instructions/Education 1) DRINK PLENTY OF FLUIDS, ESPECIALLY WATER 2) CONTINUE HERNANDEZ CARE DIRECTED 3) RETURN TO ER NEEDED FOR WORSENING SYMPTOMS OR FURTHER CONCERNS 4) CONTINUE MEDICATIONS, ETC DIRECTED BY DR. MAC Care Plan and Goals Physician Care Plan Problem: 1) HERNANDEZ CATHETER DYSFUNCTION Goal: Follow up with primary care provider 1) DR. MAC DIRECTED POST-OPERATIVELY Instructions: Take medications and follow care plan as discussed/written Functional Status No functional status results. Allergies, Adverse Reactions, Alerts Allergen Type Severity Reaction Status Last Updated Sulfa (Sulfonamide Antibiotics) Allergy Mild Active 08/13/16 Tamsulosin Allergy Intermediate Made Sterile per Pt Active 08/13/16 DECONGESTANT Allergy Intermediate KIDNEYS QUIT Active 07/15/13 Immunizations Query Response on File Recorded Date/Time Hx Influenza Vaccination Y fall 201508/09/16 9:34am Hx Pneumococcal Vaccination Y 201408/09/16 9:34am Hx Influenza Vaccination Y fall 201508/09/16 9:34am Influenza Vaccine Hx 201508/13/16 12:10pm Vital Signs Acute Vital Signs Vital Response Date/Time Temperature (Fahrenheit) 98.6 deg F (96.8 - 99.1) 08/13/2016 12:43pm Temperature (Calculated Celsius) 37.48768 degrees C (36.0 - 37.3) 08/13/2016 12:43pm Temperature Source Oral 08/12/2016 11:30am Pulse Rate (adult) 96 bpm (60 - 100) 08/13/2016 12:43pm Respiratory Rate 16 breaths/min (10 - 20) 08/13/2016 12:43pm O2 Sat by Pulse Oximetry 98 % (90 - 100) 08/13/2016 12:43pm Oxygen Delivery Method Room Air 08/12/2016 11:30am Oxygen Delivery Method Room Air 08/12/2016 4:20pm Oxygen Flow Rate 3.00 L/min 08/10/2016 12:55pm Blood Pressure 110/65 mm Hg 08/13/2016 12:43pm Blood Pressure Source Automatic Cuff 08/12/2016 11:30am Height (Feet) 5 feet 08/13/2016 11:35am Height (Inches) 10.00 inches 08/13/2016 11:35am Weight (Kilograms) 108.800 kg 08/13/2016 11:35am Body Mass Index (BMI) 34.0 08/13/2016 11:35am Results Laboratory Results Test Name Result Units Flags Reference Collection Date/Time Result Date/ Time Comments White Blood Count 8.8 T/MM3 4.5-11.0 08/10/2016 9:07am 08/10/2016 9: 22am Red Blood Count 5.22 M/MM3 4.50-5.90 08/10/2016 9:07am 08/10/2016 9: 22am Hemoglobin 15.1 GM/DL 13.5-17.5 08/10/2016 9:07am 08/10/2016 9:22am Hematocrit 45.3 % 41-53 08/10/2016 9:07am 08/10/2016 9:22am Mean Corpuscular Volume 86.8 UM3 80-100 08/10/2016 9:07am 08/10/2016 9: 22am Mean Corpuscular Hemoglobin 28.9 UUG 26-34 08/10/2016 9:07am 2016 9:22am Mean Corpuscular Hemoglobin Concent 33.3 GM/DL 31-37 08/10/2016 9:0708/10/2016 9:22am RDW Standard Deviation 47.1 FL 36.9-50.2 08/10/2016 9:0708/10/2016 9 :22am Platelet Count 149 T/MM3 130-400 08/10/2016 9:0708/10/2016 9:22am Mean Platelet Volume 9.9 UM3 9.4-12.4 08/10/2016 9:0708/10/2016 9: 22am Neutrophils (%) (Auto) 72.9 % H 33-66 08/10/2016 9:0708/10/2016 9: 22am Lymphocytes (%) (Auto) 18.8 % L 23-45 08/10/2016 9:07am 08/10/2016 9: 22am Monocytes (%) (Auto) 7.4 % 0-9.0 08/10/2016 9:0708/10/2016 9:22am Eosinophils (%) (Auto) 0.6 % 0-4 08/10/2016 9:07am 08/10/2016 9:22am Basophils (%) (Auto) 0.1 % 0-2 08/10/2016 9:07am 08/10/2016 9:22am Immature Granulocyte % (Auto) 0.2 % 0.0-0.5 08/10/2016 9:2016 9:22am Absolute Neutrophils (auto) 6.4 T/MM3 1.8-7.7 08/10/2016 9:2016 9:22am Absolute Lymphocytes (auto) 1.7 T/MM3 1-4.8 08/10/2016 9:072016 9:22am Absolute Monocytes (auto) 0.7 T/MM3 0-0.8 08/10/2016 9:07am 08/10/2016 9:22am Absolute Eosinophils (auto) 0.1 T/MM3 0-0.5 08/10/2016 9:072016 9:22am Absolute Basophils (auto) 0.0 T/MM3 0-0.2 08/10/2016 9:0708/10/2016 9:22am Absolute Immature Granulocyte (auto 0.02 T/MM3 0.00-0.03 08/10/2016 9: 07am 08/10/2016 9:22am Prothromb Time International Ratio 1.06 H [...] 3:21pm Total Bilirubin 1.00 MG/DL 0.20-1.30 08/09/2016 9:11a08/09/2016 9: 40am Alkaline Phosphatase 86 U/L 38-126 08/09/2016 9:08/09/2016 9:40am Total Protein 6.8 G/DL 6.3-8.2 08/09/2016 9:08/09/2016 9:40am Albumin 4.0 G/DL 3.5-5.0 08/09/2016 9:08/09/2016 9:40am Globulin 2.8 G/DL 2.4-3.6 08/09/2016 9:08/09/2016 9:40am Albumin/Globulin Ratio 1.4 RATIO 1.1-2.2 08/09/2016 9:08/09/2016 9 :40am Aspartate Amino Transf (AST/SGOT) 20 U/L 17-59 08/09/2016 9:11a2016 9:40am Alanine Aminotransferase (ALT/SGPT) 31 U/L 21-72 08/09/2016 9:11a 9:40am Glucometer 144 mg/dL H 75-110 08/12/2016 11:28am 08/12/2016 11:31am Procedures Procedure Status Date Provider(s) Transurethral resection of prostate (TURP) Completed 08/09/16 JANINE MAC MD Encounters Encounter Location Arrival/Admit Date Discharge/Depart Date Attending Provider Departed Emergency Room [facility] 08/13/16 11:21am 08/13/16 12: 43pm SHON HERNÁNDEZ MD Discharged Inpatient [facility] 08/11/16 3:56pm 08/12/16 4:50pm JANINE MAC MD Recent Diagnosis
--- OUTSIDE RECORDS SUMMARY | 2016-08-13 17:39 | XMS REPORT | Continuity of Care Document ---
Author Author [facility] Organization [facility] Address Unknown Phone Unavailable Support Name Relationship Address Phone LISSETTE PAULINO MD Caregiver [address] [place] [address] Unavailable DARVIN MCLEOD II, MD Caregiver [address] [place] [phone] DWIGHT KENT Next Of Kin [address] [place] [address] C Insurance Providers Payer Name Policy Number Subscriber Name Relationship Medicare [id number] Darvin Leary 18 Self Medicare Supp Wps [id number] Darvin Leary 18 Self Problems Medical Problems [...] 1 Qty 02/16/08 02/20/08 Discontinued Flunisolide 1 [place] NS BID PRN 1 Qty 09/01/09 Active [...] F (96.8 - 99.1) Temperature (Calculated Celsius) 36.85613 degrees C (36.0 - 37.3) Pulse Rate [...] 25, 2009 8:46am LAB TEST FORM REQUEST [id number] - Lipase July 15, 2013 7:03pm 155 [...] - 20% Calcium oxalate dihydrateTest Performed by: [place] [address] Design Transferrer: Jett Delgadillo III, M.D. [place] [address] [employer] Elie Coello MD Stone Source July 23, [...] Has specimen been collected/obtained? Y Urine Specific [place] July 17, 2014 8:04pm 1.020 - Has [...] Encounters Encounter Location Date/Time Departed Emergency Room [facility] 07/17/14 7:23pm Recent Diagnosis
--- NOTE | 2016-08-13 18:10 | ERPDOC ---
Departure Disposition Decision Date: Aug 13, 2016 Disposition Decision Time: 18:33 (MAHI GUADALUPE APRN) Disposition: 01 DISCHARGED HOME, SELF-CARE Impression Impression (MAHI GUADALUPE APRN) Impression: Primary Impression: Urinary catheter dysfunction Encounter type: initial encounter Qualified Codes: T83.018A - Breakdown ( mechanical) of other urinary catheter, initial encounter Severity: Moderate (MAHI GUADALUPE APRN) Condition: Stable Seen By: Mid-level only (MAHI GUADALUPE APRN) Referrals: DARVIN MCLEOD II, MD (Family) Patient Instructions: Wright Catheter Placement and Care (ED) Problems/Meds/Labs Reviewed?: Yes Medications reviewed and manag: Yes (MAHI GUADALUPE APRN) Additional Instructions: Drain the wright bag as needed. Continue to drink plenty of fluids to help dilute the blood in the catheter and prevent clot formation. Follow up with Dr Ramos in clinic Monday morning as scheduled or return to Er for reevaluation if needed. Follow up care ordered?: Yes Mental Status: Alert (MAHI GUADALUPE APRN) HPI - Male General Chief Complaint: Male Urogenital Problems Stated Complaint: CATHERER NOT DRAINING Time Seen by Provider: 17:23 Source: patient Exam Limitations: no limitations (MAHI GUADALUPE APRN) Time Seen by Provider: 17:23 (SHON HERNÁNDEZ MD) HPI - Male Initial Comments He had a TURP done per Dr Ramos at [facility] on Monday of last week, 5 days ago. The next day he had to return to surgery to cauterize an artery that was bleeding. He was dismissed on to home. Is scheduled to follow up with Dr Ramos in hospital on Monday of next week. Overnight last night he had noted some urination around the catheter. He did come into Er and had the bladder irrigated and it seemed to be flowing well. He went home and again noted an increase of pressure in his lower abdomen and that there was no urine in the tube. Returned to Er for reevaluation of the catheter. Has been drinking lots of fluids at home. Occurred At: home Onset: Gradual Duration: 1-3 hrs Severity/Quality: fullness Location: suprapubic Radiation: none Associated Symptoms: abdominal pain (low abdominal fullness), DENIES: diaphoresis, dysuria, fever/chills, loss of bladder control, lower back pain, lumps, mass, nausea/vomiting, nocturia, polyuria, swelling, syncope, urinary frequency Hx of Similar Symptoms: No (NOLD,MAHI N CLINICAL THERAPIST) Allergies: Coded Allergies: tamsulosin (Verified Allergy, Intermediate, Made Sterile per Pt, 08/13/16) Sulfa (Sulfonamide Antibiotics) (Verified Allergy, Mild, 08/13/16) Uncoded Allergies: DECONGESTANT (Allergy, Intermediate, KIDNEYS QUIT, 07/15/13) Past History Past Medical History Metabolic: diabetes, hypercholesterolemia, hypertension ENMT: other Cardiac: MN Respiratory: pneumonia GI: IBS, constipation Male: BPH, kidney stones Musculoskeletal: back pain, osteoarthritis (NOLD,MAHI N CLINICAL THERAPIST) Surgical History General: EGD, colonoscopy, gallbladder, tonsils Cardiac: cardiac cath Reproductive/: TURP (NOLD,MAHI N CLINICAL THERAPIST) Family History Family PMH: FOUND: hypertension (NOLD,MAHI N CLINICAL THERAPIST) Vaccines Hx Influenza Vaccination: Yes (FALL 2015) Hx Pneumococcal Vaccination: Yes (2014) (NOLD,MAHI N CLINICAL THERAPIST) Social History Does patient use chewing tobac: No Second Hand Exposure: No Substance Use Type: does not use Alcohol Intake: none (NOLD,MAHI N CLINICAL THERAPIST) Review of Systems Constitutional Constitutional: DENIES: chills, dizziness, fatigue, fever, weakness (NOLD, MAHI N CLINICAL THERAPIST) Cardiovascular Cardiac: DENIES: chest pain, orthopnea Rhythm/Rate: DENIES: irregular beat, palpitations (NOLD,MAHI N CLINICAL THERAPIST) Pulmonary Respiratory: DENIES: cough, dyspnea, sputum, tachypnea (NOLD,MAHI N CLINICAL THERAPIST) GI Upper Abdomen: DENIES: nausea, pain, vomiting Lower Abdomen: DENIES: constipation, diarrhea, pain (NOLD,MAHI N CLINICAL THERAPIST) Integumentary Skin: DENIES: rash (NOLD,MAHI N CLINICAL THERAPIST) Neurological General: DENIES: headache, numbness, tingling, weakness (NOLD,MAHI N CLINICAL THERAPIST) Physical Exam General General Nourishment: well nourished, well developed, appears stated age, no acute distress, adult (MAHI GUADALUPE APRN) Vitals and Pain First Documented Vital Signs Date Time Temp Pulse Resp B/P Pulse Ox O2 Delivery O2 Flow Rate FiO2 08/13/16 17:13 97.7 103 16 125/63 98 Room Air (SHON HERNÁNDEZ MD) Vitals and Pain Weight: Kilograms: 110.000 Height (feet): 5 Height (inches): 10.00 Triage Pain Scale: (MAHI GUADALUPE APRN) Normal Exams: Neck: Full range of motion, without adenopathy, JVD, bruits or thyromegaly Chest/Resp: Clear all holden, with good airflow, and symmetry bilaterally CV: Regular rate and rhythm, without murmur or gallop, Pulses 2+ all extremities, capillary refill, <2 seconds all ext., no pedal edema noted Abdomen: Bowel sounds positive, soft, non-tender, non-distended, no hepatosplenomegaly, masses or bruits noted : Penis without lesions, testicles normal size, and orientation, without tenderness Neurologic: Patient is alert, and oriented Psychiatric: Patient exhibits, appropriate attention, emotion and affect (MAHI GUADALUPE APRN) (brief) Male Brief: FOUND: other (Wright catheter in place without urine in bag or tubing) (MAHI GUADALUPE APRN) Differential Diagnoses Considering: Urinary Retention, UTI, Other (Catheter dysfunction) (MAHI GUADALUPE APRN) Progress Results/Orders Orders Procedure Category Date Status Time Lidocaine Urojet PHA 08/13/16 Complete (Urojet) 18:15 (SHON HERNÁNDEZ MD) Medications Current ED Medications Lidocaine HCl (Urojet) 20 ml O ONCE MM ; Start 08/13/16 at 18:15; Stop at 18:59; Status DC (SHON HERNÁNDEZ MD) Progress Progress We did irrigate the wright with 500ml of NS with return of many small clots. The efflux was light pink in color. Was unable to clear the wright enough to get the fluid to drain to gravity through the catheter. Did speak with Dr Ramos and he does agree that we may remove the current wright and replace with a 20F coude catheter. Nursing was able to replace wright easily and to get return of urine into the bag as well. Will have him follow up with Dr Ramos on Monday as scheduled. (MAHI GUADALUPE ) MAHI GUADALUPE APRN Aug 13, 2016 18:10 SHON HERNÁNDEZ MD Aug 14, 2016 06:44
[2016-08-13] MEDS ORDERED: LIDOCAINE JELLY 2% 20ml UROJET MM ONE (18:15)
--- NOTE | 2016-08-13 18:30 | NUR ---
HERNANDEZ CATHERTER REPLACED WITH 20 FR COUDE. FLUSHED WITH 50 CC STERILE WATER AND 50 CC RETURNED TO HERNANDEZ BAG.
--- NOTE | 2016-08-13 18:40 | NUR ---
HERNANDEZ DRAINING HERNANDEZ DRAINING PINK TINGED URINE AT TIME OF DISMISSAL
[2016-08-13 18:47] VITALS: BP 123/62; PULSE 92; RESP 16; TEMP 97.7; O2SAT 99
== END 2016-08-13 18:47 | disposition home or self-care (01) ==
LOC: ED 17:11
DX: T83.018A Breakdown (mechanical) of other urinary catheter, initial encounter (principal); Y73.1 Therapeutic (nonsurgical) and rehabilitative gastroenterology and urology devices associated with adverse incidents; Y92.009 Unspecified place in unspecified non-institutional (private) residence as the place of occurrence of the external cause

== ENCOUNTER 2016-09-03 03:12 | Emergency (ER) | payer MEDICARE, OTHER ==
[~2016-09-03] VITALS: Ht 177.8 cm; Wt 107.8 kg
[~2016-09-03 03:12] MED LIST changes: -FLUN25SP NAS
--- OUTSIDE RECORDS SUMMARY | 2016-09-03 03:16 | XMS REPORT | Continuity of Care Document ---
Author Author [facility] Organization [facility] Address Unknown Phone Unavailable Support Name Relationship Address Phone DARVIN MCLEOD II, MD Caregiver [address] [place] [address] Unavailable SHON HERNÁNDEZ MD Caregiver [address] [place] [phone] Unavailable DWIGHT KENT Next Of Kin [address] [place] [address] Insurance Providers Guarantor Darvin Leary Address [address] [place] [address] Email [email or web address] Payer Medicare Policy Number [id number] Subscriber's Name Darvin Leary Relationship 18 Self Effective Date 05 Payer T[employer] Medicare Supp Wps Policy Number [id number] Subscriber's Name Darvin Leary Relationship 18 Self Effective Date 05 Advance Directives Directive Response Recorded Date/Time Advanced Directives Type DNR Documentation 08/13/16 5:13pm Chief Complaint and Reason for Visit Chief Complaint Male Urogenital Problems Reason for Visit Urinary catheter dysfunction Problems Active Problems Medical Problem Onset Date Status Atypical chest pain Unknown Acute Ureteral calculus, left Unknown Acute Ureteral calculus, right Unknown Acute Ureteral calculus, right Unknown Acute Urinary catheter dysfunction Unknown Acute Past Problems Medical Problem Onset Date Acute otitis media Unknown Wright catheter problem Unknown Viral upper respiratory infection Unknown Medications [...] Fluticasone Propionate (Fluticasone Prop 50 Mcg/Actuation Nasal [place]) 120 [place]/16 G [place] 1 [place] Each Nostril Twice A Day as needed [...] Not Applicable Hx Substance Use No 08/13/2016 6:07pm Not Applicable Not Applicable Hx Alcohol Use No 08/13/2016 6:07pm Not Applicable Not Applicable Has the pt used tobacco in the last 12 months No 08/19/2014 7:23am Not Applicable Not Applicable Query Response Start Date Stop Date Smoking Status Never smoker Hospital Discharge Instructions No hospital discharge instructions. Plan of Care Discharge Date 08/13/16 6:47pm Disposition 01 DISCHARGED HOME, SELF-CARE Condition at Discharge Stable Instructions/Education Provided Wright Catheter Placement and Care (ED) Prescriptions See Medication Section Referrals DARVIN MCLEOD II, MD Address: [address] [place] [address] DR HWANG [address] [place] [id number] Additional Instructions/Education Drain the wright bag as needed. Continue to drink plenty of fluids to help dilute the blood in the catheter and prevent clot formation. Follow up with Dr Ramos in clinic Monday as scheduled or return to Er for reevaluation if needed. Care Plan and Goals Physician Care Plan Problem:Cathetery dysfunction Goal: Follow up with primary care provider [...] fall 201508/09/16 9:34am Influenza Vaccine Hx 201508/13/16 6:07pm Vital Signs Acute Vital Signs Vital Response Date/Time Temperature (Fahrenheit) 97.7 deg F (96.8 - 99.1) 08/13/2016 6:47pm Temperature (Calculated Celsius) 36.65853 degrees C (36.0 - 37.3) 08/13/2016 6:47pm Temperature Source Oral 08/12/2016 11:30am Pulse Rate (adult) 92 bpm (60 - 100) 08/13/2016 6:47pm Respiratory Rate 16 breaths/min (10 - 20) 08/13/2016 6:47pm O2 Sat by Pulse Oximetry 99 % (90 - 100) 08/13/2016 6:47pm Oxygen Delivery Method Room Air 08/12/2016 11:30am Oxygen Delivery Method Room Air 08/12/2016 4:20pm Oxygen Flow Rate 3.00 L/min 08/10/2016 12:55pm Blood Pressure 123/62 mm Hg 08/13/2016 6:47pm Blood Pressure Source Automatic Cuff 08/12/2016 11:30am Height (Feet) 5 feet 08/13/2016 5:13pm Height (Inches) 10.00 inches 08/13/2016 5:13pm Weight (Kilograms) 110.000 kg 08/13/2016 5:13pm Body Mass Index (BMI) 34.0 08/13/2016 5:13pm Results Laboratory Results Test Name Result Units Flags Reference Collection Date/Time Result Date/ Time Comments White Blood Count 8.8 T/MM3 4.5-11.0 08/10/2016 9:07am 08/10/2016 9: 22am Red Blood Count 5.22 M/MM3 4.50-5.90 08/10/2016 9:07am 08/10/2016 9: 22am Hemoglobin 15.1 GM/DL 13.5-17.5 08/10/2016 9:0708/10/2016 9:22am Hematocrit 45.3 % 41-53 08/10/2016 9:07am [...] Mean Platelet Volume 9.9 UM3 9.4-12.4 08/10/2016 9:07am 08/10/2016 9: 22am Neutrophils (%) (Auto) 72.9 % H 33-66 08/10/2016 9:0708/10/2016 9: 22am Lymphocytes (%) (Auto) 18.8 % L 23-45 08/10/2016 9:0708/10/2016 9: 22am Monocytes (%) (Auto) 7.4 % 0-9.0 08/10/2016 9:07am 08/10/2016 9:22am Eosinophils (%) (Auto) 0.6 % 0-4 08/10/2016 9:07am 08/10/2016 9:22am Basophils (%) (Auto) 0.1 % 0-2 08/10/2016 9:07am 08/10/2016 9:22am Immature Granulocyte % (Auto) 0.2 % 0.0-0.5 08/10/2016 9:072016 9:22am Absolute Neutrophils (auto) 6.4 T/MM3 1.8-7.7 08/10/2016 9:072016 9:22am Absolute Lymphocytes (auto) 1.7 T/MM3 1-4.8 08/10/2016 9:072016 9:22am Absolute Monocytes (auto) 0.7 T/MM3 0-0.8 08/10/2016 9:07am 08/10/2016 9:22am Absolute Eosinophils (auto) 0.1 T/MM3 0-0.5 08/10/2016 9:07am 2016 9:22am Absolute Basophils (auto) 0.0 T/MM3 0-0.2 08/10/2016 9:07am 08/10/2016 9:22am Absolute Immature Granulocyte (auto 0.02 T/MM3 [...] Alanine Aminotransferase (ALT/SGPT) 31 U/L 21-72 08/09/2016 9: 9:40am Glucometer 144 mg/dL H 75-110 08/12/2016 11:28am 08/12/2016 11:31am Procedures Procedure Status Date Provider(s) Transurethral resection of prostate (TURP) Completed 08/09/16 JANINE RAMOS MD Encounters Encounter Location Arrival/Admit Date Discharge/Depart Date Attending Provider Departed Emergency Room [facility] 08/13/16 5:11pm 08/13/16 6: 47pm SHON HERÁNNDEZ MD Departed Emergency Room [facility] 08/13/16 11:21am 08/13/16 12: 43pm SHON HERNÁNDEZ MD Discharged Inpatient [facility] 08/11/16 3:56pm 08/12/16 4:50pm JANINE RAMOS MD Recent Diagnosis
--- OUTSIDE RECORDS SUMMARY | 2016-09-03 03:16 | XMS REPORT | Continuity of Care Document ---
Author Author [facility] Organization [facility] Address Unknown Phone Unavailable Support Name Relationship Address Phone LISSETTE PAULINO MD Caregiver [address] [place] [address] Unavailable DARVIN MCLEOD II, MD Caregiver [address] [place] [phone] DWIGHT KENT Next Of Kin [address] [place] [address] C Insurance Providers Payer Name Policy Number Subscriber Name Relationship Medicare [id number] Darvin Leary 18 Self Medicare Supp Wps [id number] Darvin Leary 18 Self Problems Medical Problems [...] 1 Qty 02/16/08 02/20/08 Discontinued Flunisolide 1 [place] NS BID PRN 1 Qty 09/01/09 Active [...] F (96.8 - 99.1) Temperature (Calculated Celsius) 36.85260 degrees C (36.0 - 37.3) Pulse Rate [...] 25, 2009 8:46am LAB TEST FORM REQUEST [id number] - Lipase July 15, 2013 7:03pm 155 [...] - 20% Calcium oxalate dihydrateTest Performed by: [place] [address] Online Banking Specialist: Jett Delgadillo III, M.D. [place] [address] Marine Steam Fitter Elie Coello MD Stone Source July 23, [...] Has specimen been collected/obtained? Y Urine Specific [place] July 17, 2014 8:04pm 1.020 - Has [...] Encounters Encounter Location Date/Time Departed Emergency Room [facility] 07/17/14 7:23pm Recent Diagnosis
--- OUTSIDE RECORDS SUMMARY | 2016-09-03 03:18 | XMS REPORT | Summary of Care ---
Author Author Maulik GONZALEZ, Carmina Organization Unknown Address [address], [place] [id number] Phone Unavailable Care Team Providers Care Kitchen Supervisor Name Role Phone Cleve Ramos M.D. Unavailable [...] Bilateral kidney stones (592.0, N20.0) Status: Active Clot retention of urine (788.29, R33.8) Status: Active Hemorrhage of prostate (602.1, N42.1) Status: Active BPH with obstruction/lower urinary tract [...] DAILY. * Quantity: 60 Refills: 1 Cho Tammy.Cleve Reyna * Start 27-Jul-2016 Active Allergies and [...] History of Cystoscopy With Ureteroscopy With Lithotripsy URINE CULTURE [id number] Ordered: 31-Aug-2016 Immunization Name Dates Details Immunizations not documented [...] Encounters Appointment; Provider: Cleve Ramos M.D. On 12:45 Interventions Provided Labs/Procedures/Imaging* URINE CULTURE [id number]; To be Done: 31 Aug 2016 Instructions Name Dates Details Instructions not documented Encounters Appointment; Cleve Ramos M.D. Encounter Diagnosis: Problem not documented On 17-Aug-2016 07:30 Appointment; Cleve Ramos M.D. Encounter Diagnosis: Problem [...]
[2016-09-03 03:20] VITALS: Ht 177.8 cm; Wt 107.8 kg
--- OUTSIDE RECORDS SUMMARY | 2016-09-03 03:48 | XMS REPORT | Continuity of Care Document ---
Author Author [facility] Organization [facility] Address Unknown Phone Unavailable Support Name Relationship Address Phone LISSETTE PAULINO MD Caregiver [address] [place] [address] Unavailable DARVIN MCLEOD II, MD Caregiver [address] [place] [address] [phone] DWIGHT KENT Next Of Kin [address] [place] [address] C Insurance Providers Payer Name Policy Number Subscriber Name Relationship Medicare [id number] Darvin Leary 18 Self Medicare Supp Wps [id number] Darvin Leary 18 Self Problems Medical Problems [...] 1 Qty 02/16/08 02/20/08 Discontinued Flunisolide 1 [place] BID PRN 1 Qty 09/01/09 Active [...] F (96.8 - 99.1) Temperature (Calculated Celsius) 36.03942 degrees C (36.0 - 37.3) Pulse Rate [...] 25, 2009 8:46am LAB TEST FORM REQUEST [id number] - Lipase July 15, 2013 7:03pm 155 [...] - 20% Calcium oxalate dihydrateTest Performed by: [place] [address] Senior Ui Ux Developer: Jett Delgadillo III, M.D. [place] [address] Water Filterer Helper Elie Coello MD Stone Source July 23, [...] Has specimen been collected/obtained? Y Urine Specific Bernard July 17, 2014 8:04pm 1.020 - Has [...] Encounter Location Date/Time Departed Emergency Room [facility] 07/17/14 7:23pm Recent Diagnosis
[2016-09-03 04:20] LABS: HCT - HEMATOCRIT 42.8 % (41-53); HGB - HEMOGLOBIN 14.2 GM/DL (13.5-17.5); MEAN CORPUSCULAR HGB 28.7 UUG (26-34); MEAN CORPUSCULAR HGB CONC(MCHC 33.2 GM/DL (31-37); MEAN CORPUSCULAR VOLUME 86.6 UM3 (80-100); MEAN PLATELET VOLUME 9.3 UM3 (9.4-12.4); RED BLOOD COUNT 4.94 M/MM3 (4.50-5.90); WBC - WHITE BLOOD COUNT 6.5 T/MM3 (4.5-11.0)
[2016-09-03 04:24] LABS: INR 1.04 (0.77-1.03); PROTHROMBIN TIME 11.4 SEC (9.48-12.52); PTT 32.9 SEC (24-36)
[2016-09-03 04:26] LABS: ANION GAP 11 MEQ/L (5-15); BUN/CREATININE RATIO 21 RATIO (6-26); CHLORIDE 105 MEQ/L (98-107); CO2 - CARBON DIOXIDE 26 MEQ/L (22-30); GLOMERULAR FILTRATION RATE 73; GLUCOSE 145 MG/DL (75-110); POTASSIUM 4.7 MEQ/L (3.6-5); SODIUM 142 MEQ/L (134-144)
[2016-09-03 05:06] LABS: BLOOD, URINE 3+ (NEGATIVE); COLOR,URINE RED (YELLOW); LEUKOCYTE ESTERASE ,URINE TRACE (NEGATIVE); NITRITE,URINE POSITIVE (NEGATIVE)
[2016-09-03 05:08] LABS: BACTERIA,URINE NONE SEEN (NEGATIVE); RBC,URINE TNTC /HPF (0-3)
[2016-09-03] MEDS ORDERED: FOSFOMYCIN 3 GRAM PACKET PO ONE (05:30)
--- NOTE | 2016-09-03 05:48 | ERPDOC ---
Departure Disposition Decision Date: September 03, 2016 Disposition Decision Time: 05:45 Disposition: 01 DISCHARGED HOME, SELF-CARE Impression Impression Impression: Primary Impression: UTI (urinary tract infection) Urinary tract infection type: acute cystitis Hematuria presence: with hematuria Qualified Codes: N30.01 - Acute cystitis with hematuria Additional Impression: Hematuria Severity: Moderate Condition: Improved Seen By: Physician only Referrals: DARVIN MCLEOD II, MD (Family) 1 Week JANINE RAMOS MD 3 Days Patient Instructions: Hematuria (ED), Urinary Tract Infection in Men (ED) Problems/Meds/Labs Reviewed?: Yes Medications reviewed and manag: Yes Additional Instructions: You have bleeding into your urine (hematuria). This is likely a combination of your UTI, daily aspirin, and recent prostate surgery. We have treated the UTI with the antibiotic here. Change your aspirin to every other day. Follow up with Dr. Mcleod regarding your depression and Dr. Ramos regarding your hematuria. Follow up care ordered?: Yes Mental Status: Alert, Oriented HPI - Male General Chief Complaint: Male Urogenital Problems Stated Complaint: BLOOD IN URINE Time Seen by Provider: 03:31 HPI - Male Allergies: Coded Allergies: tamsulosin (Verified Allergy, Intermediate, Made Sterile per Pt, 08/13/16) Sulfa (Sulfonamide Antibiotics) (Verified Allergy, Mild, 08/13/16) Uncoded Allergies: DECONGESTANT (Allergy, Intermediate, KIDNEYS QUIT, 07/15/13) Past History Past Medical History Metabolic: diabetes, hypercholesterolemia, hypertension ENMT: other Cardiac: AK Respiratory: pneumonia GI: IBS, constipation Male: BPH, kidney stones Musculoskeletal: back pain, osteoarthritis Surgical History General: EGD, colonoscopy, gallbladder, tonsils Cardiac: cardiac cath Reproductive/: TURP Family History Family PMH: FOUND: hypertension Vaccines Hx Influenza Vaccination: Yes (FALL 2015) Hx Pneumococcal Vaccination: Yes (2014) Social History Does patient use chewing tobac: No Second Hand Exposure: No Substance Use Type: does not use Alcohol Intake: none Physical Exam General Vitals and Pain Weight: Kilograms: Height (feet): 5 Height (inches): 10.00 Triage Pain Scale: Progress Results/Orders Orders Procedure Category Date Status Time Hemagram - Cbc No Diff LAB 09/03/16 Complete Bmp - Basic Metabolic LAB 09/03/16 Complete Panel PTT LAB 09/03/16 Complete INR LAB 09/03/16 Complete UA, LAB 09/03/16 Complete Dip&Micro(Complete) & 04:55 Urine Culture LISET 09/03/16 In Process 05:08 Fosfomycin PHA 09/03/16 Complete Tromethamine (Monurol) 05:30 Lab Results Laboratory Tests Test 09/03/16 04:08 09/03/16 04:55 White Blood Count 6.5T/MM3 Red Blood Count 4.94M/MM3 Hemoglobin 14.2GM/DL Hematocrit 42.8% Mean Corpuscular Volume 86.6UM3 Mean Corpuscular Hemoglobin 28.7UUG Mean Corpuscular Hemoglobin Concent 33.2GM/DL RDW Standard Deviation 45.8FL Platelet Count 176T/MM3 Mean Platelet Volume 9.3UM3 Prothromb Time International Ratio 1.04 Activated Partial Thromboplast Time 32.9SEC Turbidity < 20 Sodium Level 142MEQ/L Potassium Level 4.7MEQ/L Chloride Level 105MEQ/L Carbon Dioxide Level 26MEQ/L Anion Gap 11MEQ/L Blood Urea Nitrogen 21.0MG/DL Creatinine 1.0MG/DL Glomerular Filtration Rate Calc 73 BUN/Creatinine Ratio 21RATIO Glucose Level 145MG/DL Calculated Osmolality 279MOSM/KG Calcium Level 9.0MG/DL Icterus Index < 2 Chemistry Specimen Hemolysis < 15 Urine Collection Type Cleancatch-midstream Urine Color Red Urine Turbidity Bloody Urine pH 7.5 Urine Specific [place] 1.020 Urine Protein 3+ Urine Glucose (UA) 2+ Urine Ketones Negative Urine Blood 3+ Urine Nitrite Positive Urine Bilirubin Negative Urine Urobilinogen 1.0EU/DL Urine Leukocyte Esterase Trace Urine RBC Tntc/HPF Urine WBC 10-20/HPF Urine Bacteria None seen Urine Culture Indicated Cult reflexed &setup Medications Current ED Medications Fosfomycin Tromethamine (Monurol) 3 g O ONCE PO ; Start 09/03/16 at 05:30; Stop 09/03/16 at 05:31; Status DC Progress Progress Pt with UTI and hematuria. Will change ASA to qod. Treat UTI now. F/u with Dr. Mcleod re: depression and Dr. Ramos regarding hematuria. Pt voiced understanding of dx, prognosis, tx, and f/u need. ANA BRITTON DO September 03, 2016 05:48
[2016-09-03 05:55] VITALS: BP 143/63; PULSE 95; RESP 20; TEMP 98.4; O2SAT 95
--- NOTE | 2016-09-03 05:55 | NUR ---
DEPART PT GIVEN DI FOR HEMATURIA, UTI IN MEN, AND F/U. VERBALIZES UNDERSTANDING. QUESTIONS ASKED/ANSWERED - DENIES FURTHER QUESTIONS/NEEDS AT THIS TIME. PERSONAL BELONGINGS GATHERED. PT AMBULATED/ESCORTED TO ED EXIT - GAIT STABLE, NO SIGN OF DISTRESS AT THIS TIME.
--- NOTE | 2016-09-05 09:33 | NUR ---
RX CONTACTED PT WITH URINE CULTURE RESULTS. REQUESTED PT TO DC DOXYCYCLINE BECAUSE IT WAS RESISTANT TO BACTERIA IN URINE. TOLD PT DR GUAJARDO WAS ORDERING NEW RX. HE WANTED IT CALLED TO [facility]. 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 MACROBID 100 MG PO BID X 10 DAYS NO REFILL
== END 2016-09-03 05:55 | disposition home or self-care (01) ==
LOC: ED 03:12
DX: N30.01 Acute cystitis with hematuria (principal)
CPT/HCPCS: 36415; 80048; 81001; 85027; 85610; 85730; 87077; 87086; 87147; 87186; 99283; A9270